=== PATIENT | male | born 1950 | race Caucasian/White ===

== ENCOUNTER 2016-07-31 10:41 | Emergency (ER) | payer OTHER ==
[~2016-07-31] VITALS: Ht 172.7 cm; Wt 81.8 kg
[~2016-07-31 10:41] MED LIST: ACETAMINOPHEN325 M1 PO; ACTOS15 MG PO; ALBUTEROL1.25 MG/3 IH; ALER-CAP25 M2 PO; ALUM-MAG HYDRO360 ML PO; AMLODIPINE BESYL5 MG PO; APRESOLINE10 MG PO; APRESOLINE25 MG PO; APRESOLINE50 MG PO; ASPIRIN EC325 MG PO; ASPIRIN325 MG PO; ATORVASTATIN CA40 MG PO; BENADRYL25 MG PO; BISAC-EVAC10 MG PR; CALMOSEPTINE O120 GM TP; CEFTIN250 MG PO; CENTRUM SILVER1 EAC3 PO; CHOLESTYRAMINE L4 GM PO; CIPROFLOXACIN500 M1 PO; CITRUCEL907 G1 PO; CLONIDINE1 EACH TD; COLACE100 MG PO; COZAAR100 MG PO; COZAAR50 MG PO; CRESTOR40 MG PO; DAILY VALUE1 EACH PO; DAILY VITAMIN1 EAC8 PO; DEPAKENE250 MG PO; DIOVAN160 MG PO; DIPHENHYDRAMINE25 M2 PO; DOCUSATE SODIU100 MG PO; DRISDOL50000 UNIT PO; DULCOLAX10 MG PR; ECOTRIN325 MG PO; ERGOCALCIF50000 UNIT PO; Ecotrin PO; FLEET ENEMA-AD118 ML PR; FLEET MINERAL133 ML PR; FLORANEX CHE1 TABLET PO; GERI-MOX ANTAC355 ML PO; GLIPIZIDE10 MG PO; GLUCAGON1 MG IM; GLUCOPHAGE1000 MG PO; GLUCOSE GEL15 GM PO; HUMALOG100 UNIT/1 SC; HUMALOG100 UNIT/2 SC; JANUMET 50/11 TABLET PO; LANTUS 10100 UNITS/ SC; LANTUS 3 M100 UNITS1 SC; LEVEMIR100 UNIT/2 SC; LIPITOR40 MG PO; LIPITOR80 MG PO; LISINOPRIL40 MG PO; LITHIUM CARBON300 MG PO; LITHIUM CARBON600 MG PO; LOPRESSOR100 M1 PO; LOPRESSOR50 MG PO; LOSARTAN POTASS50 MG PO; Lithium Carbonate PO; MAALOX ADVANCE355 ML PO; METFORMIN HCL1000 MG PO; METFORMIN HCL500 MG PO; METOPROLOL TAR100 MG PO; METOPROLOL TART50 MG PO; MILK OF MAGN PO; NAFCIL 2 G2 GM/100 M IV; NEURONTIN100 MG PO; NEURONTIN300 MG PO; NORVASC5 MG PO; NOVOLOG 10100 UNITS/ SC; NOVOLOG PE100 UNITS/ SC; PLAVIX75 MG PO; POTASSIUM CHLO20 ME1 PO; PRILOSEC OTC20 MG PO; PRILOSEC20 MG PO; PRINIVIL20 MG PO; RISPERDAL1 MG PO; RISPERDAL2 MG PO; RISPERDAL3 MG PO; RISPERIDONE1 MG PO; RISPERIDONE2 MG PO; SENNA8.6 MG PO; SENOKOT,SENN1 TABLET PO; SERTRALINE HCL50 MG PO; TAMSULOSIN HCL0.4 MG PO; TRADJENTA5 MG PO; TRAMADOL HCL50 MG PO; TRAZODONE HCL50 MG PO; TUMS500 MG PO; TYLENOL REGULA325 MG PO; VITAMIN D5000 UNIT; ZESTRIL40 MG PO; ZETIA10 MG PO; ZOCOR40 MG PO; ZOFRAN4 MG PO; ZOLOFT50 MG PO
[2016-07-31 11:39] LABS: CARBON DIOXIDE (BICARBONATE) 25.1 MEQ/L (20-31)
[2016-07-31 11:42] LABS: CHLORIDE 100 mEq/L (99-109); POTASSIUM 4.7 mEq/L (3.7-5.4); SODIUM 133 mEq/L (136-147)
[2016-07-31 11:45] LABS: ANION GAP 11 MEQ/L (2-14); GLUCOSE 698 mg/dL (70-99)
[2016-07-31 11:46] LABS: TOTAL BILIRUBIN 0.2 mg/dL (0.0-1.0)
[2016-07-31 11:48] LABS: ALKALINE PHOSPHATASE 100 IU/L (3-129); GFR ESTIMATE (CALCULATED) 43 mL/min/
[2016-07-31 11:49] LABS: UREA NITROGEN (BUN) 22 mg/dL (9-23)
[2016-07-31 11:55] LABS: ADD MIUA? NO; BILIRUBIN NEGATIVE; BLOOD NEGATIVE; COLOR STRAW ((YELLOW)); GLUCOSE (STRIP) >=500; KETONES 5; LEUKOCYTES NEGATIVE; NITRITE NEGATIVE; PROTEIN (STRIP) NEGATIVE; SPECIFIC GRAVITY 1.015 (1.000-1.030); UCUL ADDED? NO; UROBILINOGEN 0.2 MG/DL (0.2-1.0)
[2016-07-31 11:58] LABS: EOSINOPHIL (%) 1.4 % (0-5); EOSINOPHIL COUNT 0.1 K/uL (0-0.3); HEMATOCRIT 29.8 % (38.0-50.0); LYMPHOCYTE COUNT 0.9 K/uL (1.0-2.8); MCH 31.5 PG (29.0-34.0); MCHC 33.9 G/DL (30.0-36.0); MCV 92.8 FL (86-99); MEAN PLAT.VOLUME 9.3 uM^3 (9.0-12.4); MONOCYTE (%) 5.7 % (3-12); MONOCYTE COUNT 0.4 K/uL (0-0.8); NEUTROPHIL (%) 80.6 % (45-76); NEUTROPHIL COUNT 5.8 K/uL (1.8-6.4); PLATELET COUNT 193 K/uL (156-360); RBC DIS.WIDTH-CV 12.1 % (11.8-14.6); RBC DIS.WIDTH-SD 39.4 % (39-53); RED BLOOD COUNT 3.21 M/uL (4.00-5.50); WHITE BLOOD COUNT 7.2 K/uL (4.1-10.2)
[2016-07-31 14:34] VITALS: BP 158/77
[2016-07-31 14:39] LABS: POINT-OF-CARE METER ID UU14100415
[2016-08-01] MEDS ORDERED: LEVEMIR FL100 UNIT/1 SC ×2 (19:50→19:51)
[2016-08-01] MEDS ORDERED: MIRALAX255 GM PO (19:52)
[2016-08-01] MEDS ORDERED: LEVEMIR100 UNIT/2 SC (19:56)
[2016-08-01] MEDS ORDERED: NOVOLOG 10100 UNITS/ SC (19:57)
[2016-08-03 12:57] LABS: POINT-OF-CARE METER ID UU14100415; POINT-OF-CARE USER ID AHSDISBJH
[2016-08-03 12:57] LABS: POINT-OF-CARE METER ID UU14100415
== END 2016-07-31 15:01 ==
LOC: EME 10:41
PROVIDERS: Physician Assistant
DX: E11.65 Type 2 diabetes mellitus with hyperglycemia (principal); J45.909 Unspecified asthma, uncomplicated; E78.5 Hyperlipidemia, unspecified; I10 Essential (primary) hypertension; K21.9 Gastro-esophageal reflux disease without esophagitis; Z86.73 Personal history of transient ischemic attack (TIA), and cerebral infarction without residual deficits; Z79.4 Long term (current) use of insulin; Z87.891 Personal history of nicotine dependence; Z79.01 Long term (current) use of anticoagulants
CPT/HCPCS: 80053; 81003; 82010; 82803; 82948; 85025; 99281; 99285; J7120

== ENCOUNTER 2016-08-01 15:43 | Inpatient (IN) | payer OTHER ==
[~2016-08-01] VITALS: Ht 172.7 cm; Wt 82.8 kg
[2016-08-01 16:15] LABS: EOSINOPHIL (%) 2.4 % (0-5); EOSINOPHIL COUNT 0.1 K/uL (0-0.3); HEMATOCRIT 30.2 % (38.0-50.0); IMMATURE GRANULOCYTE (%) 0.2 % (0.0-0.7); IMMATURE GRANULOCYTE COUNT 0.1 K/uL; LYMPHOCYTE COUNT 1.3 K/uL (1.0-2.8); MCH 31.8 PG (29.0-34.0); MCHC 35.1 G/DL (30.0-36.0); MCV 90.7 FL (86-99); MEAN PLAT.VOLUME 8.7 uM^3 (9.0-12.4); MONOCYTE (%) 9.6 % (3-12); MONOCYTE COUNT 0.5 K/uL (0-0.8); NEUTROPHIL (%) 62.7 % (45-76); NEUTROPHIL COUNT 3.4 K/uL (1.8-6.4); PLATELET COUNT 181 K/uL (156-360); RBC DIS.WIDTH-CV 11.6 % (11.8-14.6); RBC DIS.WIDTH-SD 37.1 % (39-53); RED BLOOD COUNT 3.33 M/uL (4.00-5.50); WHITE BLOOD COUNT 5.4 K/uL (4.1-10.2)
[2016-08-01 16:27] LABS: CHLORIDE 99 mEq/L (99-109); POTASSIUM 4.4 mEq/L (3.7-5.4); SODIUM 131 mEq/L (136-147)
[2016-08-01 16:31] LABS: ANION GAP 11 MEQ/L (2-14)
[2016-08-01 16:32] LABS: GLUCOSE 596 mg/dL (70-99); TOTAL BILIRUBIN 0.4 mg/dL (0.0-1.0)
[2016-08-01 16:33] LABS: ALKALINE PHOSPHATASE 116 IU/L (3-129); GFR ESTIMATE (CALCULATED) 46 mL/min/
[2016-08-01 16:34] LABS: UREA NITROGEN (BUN) 26 mg/dL (9-23)
[2016-08-01 17:58] LABS: POINT-OF-CARE METER ID UU13113702
[2016-08-01 18:34] LABS: ADD MIUA? NO; BILIRUBIN NEGATIVE; BLOOD NEGATIVE; COLOR COLORLESS ((YELLOW)); GLUCOSE (STRIP) >=500; KETONES 5; LEUKOCYTES NEGATIVE; NITRITE NEGATIVE; PROTEIN (STRIP) NEGATIVE; SPECIFIC GRAVITY 1.007 (1.000-1.030); UROBILINOGEN 0.2 MG/DL (0.2-1.0)
[2016-08-01] MEDS ORDERED: LEVEMIR FL100 UNIT/1 SC ×2 (19:50→19:51)
[2016-08-01] MEDS ORDERED: MIRALAX255 GM PO (19:52)
[2016-08-01] MEDS ORDERED: LEVEMIR100 UNIT/2 SC (19:56)
[2016-08-01] MEDS ORDERED: NOVOLOG 10100 UNITS/ SC (19:57)
[2016-08-01 20:29] LABS: POINT-OF-CARE METER ID UU13113702
[2016-08-01 21:30] VITALS: BP 168/74
[2016-08-01 22:11] LABS: POINT-OF-CARE METER ID UU13113831
[2016-08-02] VITALS: BP 144/65
[2016-08-02 00:25] LABS: CARBON DIOXIDE (BICARBONATE) 22.5 MEQ/L (20-31)
[2016-08-02 00:34] LABS: CHLORIDE 106 mEq/L (99-109); POTASSIUM 4.8 mEq/L (3.7-5.4); SODIUM 137 mEq/L (136-147)
[2016-08-02 00:35] LABS: MAGNESIUM 1.5 mg/dL (1.3-2.7)
[2016-08-02 00:38] LABS: ANION GAP 11 MEQ/L (2-14)
[2016-08-02 00:39] LABS: TOTAL BILIRUBIN 0.4 mg/dL (0.0-1.0)
[2016-08-02 00:40] LABS: ALKALINE PHOSPHATASE 100 IU/L (3-129)
[2016-08-02 00:41] LABS: GFR ESTIMATE (CALCULATED) > 59 mL/min/
[2016-08-02 00:42] LABS: UREA NITROGEN (BUN) 19 mg/dL (9-23)
[2016-08-02 00:48] LABS: GLUCOSE 435 mg/dL (70-99)
[2016-08-02 04:00] VITALS: BP 138/68
[2016-08-02 04:04] LABS: METH RESISTANT S AUREUS PCR POSITIVE (NEGATIVE)
[2016-08-02 04:05] LABS: PROBE CHECK PASS
[2016-08-02 06:03] LABS: CARBON DIOXIDE (BICARBONATE) 21.5 MEQ/L (20-31)
[2016-08-02 06:45] LABS: ALKALINE PHOSPHATASE 88 IU/L (3-129); ANION GAP 11 MEQ/L (2-14); CHLORIDE 107 MEQ/L (99-109); GFR ESTIMATE (CALCULATED) > 59 mL/min/; MAGNESIUM 1.7 mg/dl (1.3-2.7); POTASSIUM 4.7 MEQ/L (3.7-5.4); SAMPLE HEMOLYSIS CHECK 0; SAMPLE ICTERIC CHECK 0; SAMPLE LIPEMIA CHECK 0; SODIUM 137 MEQ/L (136-147); TOTAL BILIRUBIN 0.4 MG/DL (0.0-1.0); UREA NITROGEN (BUN) 21 mg/dL (9-23)
[2016-08-02 06:50] LABS: GLUCOSE 482 mg/dL (70-99)
[2016-08-02 07:36] VITALS: BP 104/49
[2016-08-02 11:11] LABS: Estimated Average Glucose 240 mg/dL (70-123)
[2016-08-02 12:23] LABS: BASE EXCESS -7.7 mEq/L (-3 to +3); BICARBONATE 18.3 mEq/L (22-26); CARBOXY HGB 1.6 % (0-5); METHEMOGLOBIN 1.7 % (0-1.5); PCO2 38 mm Hg (35-45); PO2 82 mm Hg (80-100)
[2016-08-02 12:25] LABS: COMMENTS - BLOOD GASES A+C+; MODE RA; SITE LR
[2016-08-02 12:26] LABS: TOTAL RESP RATE 16 resp/min; pH 7.29 (7.35-7.45)
[2016-08-02 14:06] LABS: ANION GAP 8 MEQ/L (2-14); CHLORIDE 106 MEQ/L (99-109); GFR ESTIMATE (CALCULATED) 54 mL/min/; GLUCOSE 363 mg/dL (70-99); POTASSIUM 4.5 MEQ/L (3.7-5.4); SAMPLE HEMOLYSIS CHECK 0; SAMPLE ICTERIC CHECK 0; SAMPLE LIPEMIA CHECK 0; SODIUM 136 MEQ/L (136-147); UREA NITROGEN (BUN) 24 mg/dL (9-23)
[2016-08-02 16:00] VITALS: BP 130/61
[2016-08-02 17:33] VITALS: BP 130/66
[2016-08-02 17:55] LABS: POINT-OF-CARE METER ID UU13113725
[2016-08-02 22:57] VITALS: BP 141/66
[2016-08-03 04:47] LABS: POINT-OF-CARE METER ID UU13113725
[2016-08-03 06:00] LABS: HEMATOCRIT 28.3 % (38.0-50.0); MCH 32.2 PG (29.0-34.0); MCHC 34.3 G/DL (30.0-36.0); MEAN PLAT.VOLUME 9.6 uM^3 (9.0-12.4); PLATELET COUNT 168 K/uL (156-360); RBC DIS.WIDTH-CV 12.6 % (11.8-14.6); RBC DIS.WIDTH-SD 43.2 % (39-53); RED BLOOD COUNT 3.01 M/uL (4.00-5.50); WHITE BLOOD COUNT 4.5 K/uL (4.1-10.2)
[2016-08-03 06:27] LABS: ANION GAP 7 MEQ/L (2-14); CHLORIDE 111 MEQ/L (99-109); GFR ESTIMATE (CALCULATED) > 59 mL/min/; SAMPLE HEMOLYSIS CHECK 0; SAMPLE ICTERIC CHECK 0; SAMPLE LIPEMIA CHECK 0; SODIUM 142 MEQ/L (136-147); UREA NITROGEN (BUN) 16 mg/dL (9-23)
[2016-08-03 06:28] LABS: POINT-OF-CARE METER ID UU13113725
[2016-08-03 06:31] LABS: GLUCOSE 169 mg/dL (70-99)
[2016-08-03 07:27] VITALS: BP 143/66
[2016-08-03 11:28] LABS: POINT-OF-CARE METER ID UU13113725
[2016-08-03 12:15] LABS: POINT-OF-CARE METER ID UU13113725
[2016-08-03 12:16] LABS: POINT-OF-CARE METER ID UU13113725
[2016-08-03 12:29] LABS: POINT-OF-CARE METER ID UU13113831
[2016-08-03 12:31] LABS: POINT-OF-CARE METER ID UU13113702
[2016-08-03 16:46] VITALS: BP 144/67
[2016-08-03 23:15] VITALS: BP 136/63
[2016-08-04 05:56] LABS: POINT-OF-CARE METER ID UU13113725
[2016-08-04 07:55] VITALS: BP 177/79
[2016-08-04 17:01] VITALS: BP 171/78
[2016-08-04 20:53] LABS: POINT-OF-CARE METER ID UU13113725
[2016-08-04 23:44] VITALS: BP 130/69
[2016-08-05 07:32] VITALS: BP 157/75
[2016-08-05] MEDS ORDERED: NOVOLOG PE100 UNITS/ SC (09:09)
[2016-08-05] MEDS ORDERED: LEVEMIR100 UNIT/2 SC (09:11)
[2016-08-05 11:27] LABS: POINT-OF-CARE METER ID UU13113725
== END 2016-08-05 13:16 | DRG 684 ==
LOC: EME 15:43 → 5WEST 20:20 → EDOF 20:20 → 5WEST 21:04 → 5EAST 08-02 09:18 → 5WEST 08-02 09:18 → 5EAST 08-02 17:24
PROVIDERS: Emergency Medicine; Family Medicine; Hospitalist; Internal Medicine; Physician Assistant Medical
DX: N17.9 Acute kidney failure, unspecified (principal); E11.65 Type 2 diabetes mellitus with hyperglycemia; E11.69 Type 2 diabetes mellitus with other specified complication; D63.8 Anemia in other chronic diseases classified elsewhere; F20.9 Schizophrenia, unspecified; F70 Mild intellectual disabilities; E78.5 Hyperlipidemia, unspecified; I25.10 Atherosclerotic heart disease of native coronary artery without angina pectoris; I10 Essential (primary) hypertension; E86.0 Dehydration; F31.9 Bipolar disorder, unspecified; K02.9 Dental caries, unspecified; Z86.73 Personal history of transient ischemic attack (TIA), and cerebral infarction without residual deficits; Z95.5 Presence of coronary angioplasty implant and graft; Z87.891 Personal history of nicotine dependence
CPT/HCPCS: 36600; 80048; 80048 91; 80053; 81003; 82010; 82803; 82948; 83036; 83605; 83735; 85025; 85027; 87641; 99281; 99285; G0378; J1650; J1815; J3480; J7030; J7120

== ENCOUNTER 2016-08-15 14:50 | Emergency (ER) | payer OTHER ==
[~2016-08-15] VITALS: Ht 172.7 cm; Wt 83.3 kg
[~2016-08-15 14:50] MED LIST changes: +LEVEMIR FL100 UNIT/1 SC; +MIRALAX255 GM PO
[2016-08-15 15:20] LABS: EOSINOPHIL (%) 1.6 % (0-5); EOSINOPHIL COUNT 0.1 K/uL (0-0.3); HEMATOCRIT 30.4 % (38.0-50.0); IMMATURE GRANULOCYTE (%) 0.5 % (0.0-0.7); INSTRUMENT ABS NEUTROPHIL CT 6.6 K/uL; LYMPHOCYTE COUNT 1.2 K/uL (1.0-2.8); MCH 31.8 PG (29.0-34.0); MCHC 34.2 G/DL (30.0-36.0); MEAN PLAT.VOLUME 8.8 uM^3 (9.0-12.4); MONOCYTE (%) 7.1 % (3-12); MONOCYTE COUNT 0.6 K/uL (0-0.8); NEUTROPHIL (%) 77.1 % (45-76); NEUTROPHIL COUNT 6.6 K/uL (1.8-6.4); PLATELET COUNT 218 K/uL (156-360); RBC DIS.WIDTH-CV 11.9 % (11.8-14.6); RBC DIS.WIDTH-SD 40.7 % (39-53); RED BLOOD COUNT 3.27 M/uL (4.00-5.50)
[2016-08-15 15:25] LABS: WHITE BLOOD COUNT 8.6 K/uL (4.1-10.2)
[2016-08-15 15:26] LABS: CARBON DIOXIDE (BICARBONATE) 22.7 MEQ/L (20-31)
[2016-08-15 15:29] LABS: CHLORIDE 99 mEq/L (99-109); POTASSIUM 4.6 mEq/L (3.7-5.4); SODIUM 130 mEq/L (136-147)
[2016-08-15 15:32] LABS: ANION GAP 11 MEQ/L (2-14)
[2016-08-15 15:33] LABS: ADD MIUA? NO; BILIRUBIN NEGATIVE; BLOOD NEGATIVE; COLOR COLORLESS ((YELLOW)); GLUCOSE (STRIP) >=500; KETONES 5; LEUKOCYTES NEGATIVE; NITRITE NEGATIVE; PROTEIN (STRIP) NEGATIVE; SPECIFIC GRAVITY 1.009 (1.000-1.030); UROBILINOGEN 0.2 MG/DL (0.2-1.0)
[2016-08-15 15:34] LABS: GFR ESTIMATE (CALCULATED) 46 mL/min/
[2016-08-15 15:35] LABS: UREA NITROGEN (BUN) 24 mg/dL (9-23)
[2016-08-15 15:56] LABS: GLUCOSE 551 mg/dL (70-99)
[2016-08-15 16:37] LABS: POINT-OF-CARE METER ID UU14100415
[2016-08-15 17:23] LABS: POINT-OF-CARE METER ID UU14100415
[2016-08-15 17:41] VITALS: BP 153/66
[2016-08-16 20:18] LABS: POINT-OF-CARE METER ID UU14100415
== END 2016-08-15 18:21 ==
LOC: EME 14:50
PROVIDERS: Emergency Medicine
DX: E11.65 Type 2 diabetes mellitus with hyperglycemia (principal); Z79.4 Long term (current) use of insulin; J45.909 Unspecified asthma, uncomplicated; E78.5 Hyperlipidemia, unspecified; I10 Essential (primary) hypertension; K21.9 Gastro-esophageal reflux disease without esophagitis; Z86.73 Personal history of transient ischemic attack (TIA), and cerebral infarction without residual deficits; Z87.891 Personal history of nicotine dependence
CPT/HCPCS: 80048; 81003; 82803; 82948; 85025; 99281; 99284; J7030

== ENCOUNTER 2016-09-17 12:21 | Inpatient (IN) | payer OTHER ==
[~2016-09-17] VITALS: Ht 172.7 cm; Wt 76.1 kg
[2016-09-17 13:33] LABS: CARBON DIOXIDE (BICARBONATE) 12.8 MEQ/L (20-31)
[2016-09-17 13:41] LABS: HEMATOCRIT 34.3 % (38.0-50.0); MCH 31.9 PG (29.0-34.0); MCHC 32.4 G/DL (30.0-36.0); MEAN PLAT.VOLUME 9.6 uM^3 (9.0-12.4); PLATELET COUNT 213 K/uL (156-360); RBC DIS.WIDTH-CV 12.1 % (11.8-14.6); RBC DIS.WIDTH-SD 44.2 % (39-53); RED BLOOD COUNT 3.48 M/uL (4.00-5.50)
[2016-09-17 13:42] LABS: MCV 98.6 FL (86-99); WHITE BLOOD COUNT 10.8 K/uL (4.1-10.2)
[2016-09-17 13:43] LABS: CHLORIDE 92 mEq/L (99-109)
[2016-09-17 13:46] LABS: ANION GAP 27 MEQ/L (2-14)
[2016-09-17 13:50] LABS: GLUCOSE 782 mg/dL (70-99)
[2016-09-17 13:51] LABS: GFR ESTIMATE (CALCULATED) 32 mL/min/; POTASSIUM 5.5 mEq/L (3.7-5.4); SODIUM 129 mEq/L (136-147); UREA NITROGEN (BUN) 40 mg/dL (9-23)
[2016-09-17] MEDS ORDERED: CRESTOR20 MG PO (15:25)
[2016-09-17 15:26] LABS: Estimated Average Glucose 246 mg/dL (70-123); HEMOGLOBIN A1c (GLYCOHEMOGLOB) 10.2 % HGB (Below 5.7)
[2016-09-17] MEDS ORDERED: LEVEMIR FL100 UNIT/1 SC ×2 (15:28)
[2016-09-17] MEDS ORDERED: NOVOLOG PE100 UNITS/ SC (15:30)
[2016-09-17] MEDS ORDERED: ACETAMINOPHEN325 M1 PO (15:36)
[2016-09-17] MEDS ORDERED: TYLENOL REGULA325 MG PO (15:39)
[2016-09-17] MEDS ORDERED: DULCOLAX10 MG PR (15:44)
[2016-09-17 16:13] LABS: ADD MIUA? NO; BILIRUBIN NEGATIVE; BLOOD NEGATIVE; COLOR STRAW ((YELLOW)); GLUCOSE (STRIP) >=500; KETONES 80; LEUKOCYTES NEGATIVE; NITRITE NEGATIVE; PROTEIN (STRIP) NEGATIVE; SPECIFIC GRAVITY 1.015 (1.000-1.030); UROBILINOGEN 0.2 MG/DL (0.2-1.0)
[2016-09-17 16:32] LABS: SODIUM 135 mEq/L (136-147)
[2016-09-17 16:35] LABS: ANION GAP 22 MEQ/L (2-14)
[2016-09-17 16:37] LABS: GFR ESTIMATE (CALCULATED) 34 mL/min/
[2016-09-17 16:38] LABS: UREA NITROGEN (BUN) 38 mg/dL (9-23)
[2016-09-17 16:39] LABS: CHLORIDE 102 mEq/L (99-109); GLUCOSE 699 mg/dL (70-99); POTASSIUM 4.2 mEq/L (3.7-5.4)
[2016-09-17 19:41] VITALS: BP 117/54
[2016-09-17 20:00] VITALS: BP 114/47
[2016-09-17 20:18] LABS: ANION GAP 13 MEQ/L (2-14); CHLORIDE 104 MEQ/L (99-109); GLUCOSE 388 mg/dL (70-99); POTASSIUM 4.1 MEQ/L (3.7-5.4); SAMPLE HEMOLYSIS CHECK 0; SAMPLE ICTERIC CHECK 0; SAMPLE LIPEMIA CHECK 0; SODIUM 138 MEQ/L (136-147); UREA NITROGEN (BUN) 35 mg/dL (9-23)
[2016-09-17 20:28] LABS: GFR ESTIMATE (CALCULATED) 46 mL/min/
[2016-09-17 21:00] VITALS: BP 118/47
[2016-09-17 21:54] LABS: METH RESISTANT S AUREUS PCR POSITIVE (NEGATIVE)
[2016-09-17 21:59] LABS: PROBE CHECK PASS
[2016-09-17 22:00] VITALS: BP 120/50
[2016-09-17 23:00] VITALS: BP 89/34
[2016-09-18] VITALS (14 sets, daily range): BP systolic 95–184; BP diastolic 37–78
[2016-09-18 00:48] LABS: CHLORIDE 110 mEq/L (99-109); POTASSIUM 3.8 mEq/L (3.7-5.4); SODIUM 141 mEq/L (136-147)
[2016-09-18 00:51] LABS: ANION GAP 8 MEQ/L (2-14)
[2016-09-18 00:52] LABS: GLUCOSE 161 mg/dL (70-99)
[2016-09-18 00:54] LABS: GFR ESTIMATE (CALCULATED) 50 mL/min/
[2016-09-18 00:55] LABS: UREA NITROGEN (BUN) 30 mg/dL (9-23)
[2016-09-18 04:38] LABS: CHLORIDE 110 mEq/L (99-109); SODIUM 140 mEq/L (136-147)
[2016-09-18 04:40] LABS: GLUCOSE 138 mg/dL (70-99)
[2016-09-18 04:41] LABS: ANION GAP 10 MEQ/L (2-14); POTASSIUM 4.6 mEq/L (3.7-5.4)
[2016-09-18 04:44] LABS: GFR ESTIMATE (CALCULATED) 54 mL/min/; UREA NITROGEN (BUN) 28 mg/dL (9-23)
[2016-09-18 08:16] LABS: CHLORIDE 112 mEq/L (99-109); POTASSIUM 3.9 mEq/L (3.7-5.4); SODIUM 142 mEq/L (136-147)
[2016-09-18 08:18] LABS: GLUCOSE 164 mg/dL (70-99)
[2016-09-18 08:19] LABS: ANION GAP 11 MEQ/L (2-14)
[2016-09-18 08:22] LABS: GFR ESTIMATE (CALCULATED) 54 mL/min/
[2016-09-18 08:23] LABS: UREA NITROGEN (BUN) 24 mg/dL (9-23)
[2016-09-18 09:26] LABS: POINT-OF-CARE METER ID UU13113702
[2016-09-18 09:26] LABS: POINT-OF-CARE METER ID UU13113702
[2016-09-18 09:26] LABS: POINT-OF-CARE METER ID UU13113702
[2016-09-18 11:51] LABS: POINT-OF-CARE USER ID 606021424
[2016-09-19 00:38] VITALS: BP 162/71
[2016-09-19 04:11] VITALS: BP 146/65
[2016-09-19 06:00] LABS: ANION GAP 6 MEQ/L (2-14); CHLORIDE 108 MEQ/L (99-109); GFR ESTIMATE (CALCULATED) > 59 mL/min/; GLUCOSE 118 mg/dL (70-99); POTASSIUM 4.1 MEQ/L (3.7-5.4); SAMPLE HEMOLYSIS CHECK 0; SAMPLE ICTERIC CHECK 0; SAMPLE LIPEMIA CHECK 0; SODIUM 140 MEQ/L (136-147); UREA NITROGEN (BUN) 20 mg/dL (9-23)
[2016-09-19 06:14] LABS: HEMATOCRIT 30.8 % (38.0-50.0); MCH 31.6 PG (29.0-34.0); MCHC 33.4 G/DL (30.0-36.0); MEAN PLAT.VOLUME 8.9 uM^3 (9.0-12.4); PLATELET COUNT 190 K/uL (156-360); RBC DIS.WIDTH-CV 12.1 % (11.8-14.6); RBC DIS.WIDTH-SD 41.8 % (39-53); RED BLOOD COUNT 3.26 M/uL (4.00-5.50)
[2016-09-19 06:20] LABS: MCV 94.5 FL (86-99); WHITE BLOOD COUNT 6.9 K/uL (4.1-10.2)
[2016-09-19 08:22] VITALS: BP 138/92
[2016-09-19] MEDS ORDERED: LEVEMIR100 UNIT/2 SC (11:58)
[2016-09-19 12:41] LABS: POINT-OF-CARE METER ID UU14149397
[2016-09-19 15:57] VITALS: BP 172/80
== END 2016-09-19 16:02 | DRG 638 ==
LOC: EME 12:21 → EDOF 17:10 → 3EAST 17:10 → 4WEST 17:10 → 3EAST 09-18 12:55
PROVIDERS: Anesthesiology; Emergency Medicine; Internal Medicine; Internal Medicine Pulmonary Disease
DX: E13.10 Other specified diabetes mellitus with ketoacidosis without coma (principal); N17.9 Acute kidney failure, unspecified; Z79.4 Long term (current) use of insulin; I95.9 Hypotension, unspecified; I25.10 Atherosclerotic heart disease of native coronary artery without angina pectoris; I10 Essential (primary) hypertension; E78.5 Hyperlipidemia, unspecified; Z86.73 Personal history of transient ischemic attack (TIA), and cerebral infarction without residual deficits; N40.0 Benign prostatic hyperplasia without lower urinary tract symptoms; F31.9 Bipolar disorder, unspecified; Z87.891 Personal history of nicotine dependence; J45.909 Unspecified asthma, uncomplicated; F20.9 Schizophrenia, unspecified
CPT/HCPCS: 80048; 80048 91; 81003; 82010; 82803; 82948; 83036; 84100; 85027; 87641; 93005; 99281; 99285; J1815; J7030; J7050

== ENCOUNTER 2016-10-09 15:30 | Inpatient (IN) | payer OTHER ==
[~2016-10-09] VITALS: Ht 172.7 cm; Wt 76.5 kg
[~2016-10-09 15:30] MED LIST changes: +CRESTOR20 MG PO
[2016-10-09 16:56] LABS: ADD MIUA? NO; BILIRUBIN NEGATIVE; BLOOD NEGATIVE; COLOR STRAW ((YELLOW)); GLUCOSE (STRIP) >=500; KETONES 80; LEUKOCYTES NEGATIVE; NITRITE NEGATIVE; PROTEIN (STRIP) NEGATIVE; SPECIFIC GRAVITY 1.012 (1.000-1.030); UCUL ADDED? NO; UROBILINOGEN 0.2 MG/DL (0.2-1.0)
[2016-10-09 17:04] LABS: EOSINOPHIL (%) 0 % (0-5); HEMATOCRIT 32.3 % (38.0-50.0); IMMATURE GRANULOCYTE (%) 0.5 % (0.0-0.7); IMMATURE GRANULOCYTE COUNT 0.1 K/uL; INSTRUMENT ABS NEUTROPHIL CT 8.6 K/uL; LYMPHOCYTE COUNT 0.8 K/uL (1.0-2.8); MCH 30.9 PG (29.0-34.0); MCHC 32.8 G/DL (30.0-36.0); MCV 94.2 FL (86-99); MEAN PLAT.VOLUME 9.2 uM^3 (9.0-12.4); MONOCYTE (%) 6.7 % (3-12); MONOCYTE COUNT 0.7 K/uL (0-0.8); NEUTROPHIL (%) 84.6 % (45-76); NEUTROPHIL COUNT 8.6 K/uL (1.8-6.4); PLATELET COUNT 245 K/uL (156-360); RBC DIS.WIDTH-CV 11.9 % (11.8-14.6); RBC DIS.WIDTH-SD 41.2 % (39-53); RED BLOOD COUNT 3.43 M/uL (4.00-5.50); WHITE BLOOD COUNT 10.2 K/uL (4.1-10.2)
[2016-10-09 17:11] LABS: CHLORIDE 98 mEq/L (99-109); POTASSIUM 4.9 mEq/L (3.7-5.4)
[2016-10-09 17:12] LABS: SODIUM 128 mEq/L (136-147)
[2016-10-09 17:15] LABS: ANION GAP 14 MEQ/L (2-14)
[2016-10-09 17:16] LABS: TOTAL BILIRUBIN 0.3 mg/dL (0.0-1.0)
[2016-10-09 17:17] LABS: ALKALINE PHOSPHATASE 113 IU/L (3-129); GFR ESTIMATE (CALCULATED) 32 mL/min/
[2016-10-09 17:20] LABS: UREA NITROGEN (BUN) 36 mg/dL (9-23)
[2016-10-09 17:21] LABS: GLUCOSE 566 mg/dL (70-99)
[2016-10-09 17:56] LABS: BASE EXCESS -9.9 mEq/L (-3 to +3); BICARBONATE 16.1 mEq/L (22-26); CARBOXY HGB 2.9 % (0-5); COMMENTS - BLOOD GASES A+C+; METHEMOGLOBIN 2.5 % (0-1.5); PCO2 35 mm Hg (35-45); PO2 79 mm Hg (80-100); SITE LR; pH 7.27 (7.35-7.45)
[2016-10-09] MEDS ORDERED: LEVEMIR FL100 UNIT/1 SC ×2 (18:03→18:11)
[2016-10-09] MEDS ORDERED: DOCUSATE SODIU100 MG PO (18:08)
[2016-10-09] MEDS ORDERED: TYLENOL REGULA325 MG PO (18:12)
[2016-10-09] MEDS ORDERED: NOVOLOG PE100 UNITS/ SC (18:12)
[2016-10-09 20:09] LABS: Estimated Average Glucose 249 mg/dL (70-123); HEMOGLOBIN A1c (GLYCOHEMOGLOB) 10.3 % HGB (Below 5.7)
[2016-10-09 20:10] LABS: CHLORIDE 102 mEq/L (99-109); POTASSIUM 5.2 mEq/L (3.7-5.4); SODIUM 132 mEq/L (136-147)
[2016-10-09 20:13] LABS: ANION GAP 17 MEQ/L (2-14)
[2016-10-09 20:15] LABS: GFR ESTIMATE (CALCULATED) 36 mL/min/
[2016-10-09 20:16] LABS: UREA NITROGEN (BUN) 33 mg/dL (9-23)
[2016-10-09 20:18] LABS: GLUCOSE 547 mg/dL (70-99)
[2016-10-09 22:00] LABS: POINT-OF-CARE METER ID UU13113702; POINT-OF-CARE USER ID PUTMLD10
[2016-10-09 22:15] VITALS: BP 119/57
[2016-10-09 22:16] VITALS: BP 115/52
[2016-10-09 22:58] LABS: POINT-OF-CARE METER ID UU14174217
[2016-10-09 23:00] VITALS: BP 116/50
[2016-10-09 23:33] LABS: METH RESISTANT S AUREUS PCR NEGATIVE (NEGATIVE)
[2016-10-09 23:41] LABS: PROBE CHECK PASS; SPECIMEN PROCESSING CONTROL PASS
[2016-10-09 23:48] LABS: POINT-OF-CARE METER ID UU14174217
[2016-10-10] VITALS (18 sets, daily range): BP systolic 97–164; BP diastolic 41–80
[2016-10-10 01:00] LABS: CHLORIDE 110 mEq/L (99-109); POTASSIUM 4.3 mEq/L (3.7-5.4); SODIUM 136 mEq/L (136-147)
[2016-10-10 01:02] LABS: GLUCOSE 365 mg/dL (70-99)
[2016-10-10 01:03] LABS: ANION GAP 7 MEQ/L (2-14)
[2016-10-10 01:05] LABS: POINT-OF-CARE METER ID UU14174217
[2016-10-10 01:06] LABS: GFR ESTIMATE (CALCULATED) 41 mL/min/
[2016-10-10 01:07] LABS: UREA NITROGEN (BUN) 27 mg/dL (9-23)
[2016-10-10 01:53] LABS: POINT-OF-CARE METER ID UU14174217
[2016-10-10 02:57] LABS: POINT-OF-CARE METER ID UU14174217
[2016-10-10 03:55] LABS: POINT-OF-CARE METER ID UU14174217
[2016-10-10 04:06] LABS: CHLORIDE 112 mEq/L (99-109); POTASSIUM 4.3 mEq/L (3.7-5.4); SODIUM 139 mEq/L (136-147)
[2016-10-10 04:09] LABS: ANION GAP 7 MEQ/L (2-14)
[2016-10-10 04:11] LABS: GLUCOSE 156 mg/dL (70-99)
[2016-10-10 04:12] LABS: GFR ESTIMATE (CALCULATED) 46 mL/min/; UREA NITROGEN (BUN) 24 mg/dL (9-23)
[2016-10-10 04:46] LABS: HDL CHOLESTEROL 39 MG/DL (Desirable>=40); LDL CHOLESTEROL 104 mg/dL (Desirable<100); NON-HDL CHOLESTEROL 116 mg/dL (Desirable<160); TOTAL CHOLESTEROL 155 mg/dL (Desirable<200); TRIGLYCERIDES 61 MG/DL (Normal: <150)
[2016-10-10 04:57] LABS: POINT-OF-CARE METER ID UU14174217
[2016-10-10 05:20] LABS: POINT-OF-CARE METER ID UU14174217
[2016-10-10 06:27] LABS: POINT-OF-CARE METER ID UU14174217
[2016-10-10 07:28] LABS: POINT-OF-CARE METER ID UU14174217
[2016-10-10 12:12] LABS: POINT-OF-CARE METER ID UU14174217
[2016-10-10 16:57] LABS: POINT-OF-CARE METER ID UU13113725
[2016-10-10 19:29] LABS: CHLORIDE 110 mEq/L (99-109); SODIUM 138 mEq/L (136-147)
[2016-10-10 19:32] LABS: ANION GAP 8 MEQ/L (2-14)
[2016-10-10 19:35] LABS: GFR ESTIMATE (CALCULATED) 50 mL/min/
[2016-10-10 20:14] LABS: GLUCOSE 292 mg/dL (70-99); UREA NITROGEN (BUN) 18 mg/dL (9-23)
[2016-10-10 21:06] LABS: POINT-OF-CARE METER ID UU13113725
[2016-10-11 06:01] LABS: POINT-OF-CARE METER ID UU13113725
[2016-10-11 07:34] LABS: ANION GAP 6 MEQ/L (2-14); CHLORIDE 113 MEQ/L (99-109); GFR ESTIMATE (CALCULATED) > 59 mL/min/; MAGNESIUM 1.7 mg/dl (1.3-2.7); POTASSIUM 4.7 MEQ/L (3.7-5.4); SAMPLE HEMOLYSIS CHECK 0; SAMPLE ICTERIC CHECK 0; SAMPLE LIPEMIA CHECK 0; UREA NITROGEN (BUN) 17 mg/dL (9-23)
[2016-10-11 07:35] LABS: GLUCOSE 53 mg/dL (70-99); SODIUM 145 MEQ/L (136-147)
[2016-10-11 07:43] VITALS: BP 157/71
[2016-10-11 15:59] VITALS: BP 177/71
[2016-10-11 19:36] LABS: CHLORIDE 106 mEq/L (99-109); POTASSIUM 4.5 mEq/L (3.7-5.4)
[2016-10-11 19:37] LABS: SODIUM 134 mEq/L (136-147)
[2016-10-11 19:39] LABS: ANION GAP 6 MEQ/L (2-14); GLUCOSE 173 mg/dL (70-99)
[2016-10-11 19:42] LABS: GFR ESTIMATE (CALCULATED) > 59 mL/min/
[2016-10-11 19:43] LABS: UREA NITROGEN (BUN) 14 mg/dL (9-23)
[2016-10-11 20:44] LABS: POINT-OF-CARE METER ID UU13113725
[2016-10-11 22:44] VITALS: BP 150/70
[2016-10-12 03:21] LABS: POINT-OF-CARE METER ID UU13113725
[2016-10-12 06:02] LABS: POINT-OF-CARE METER ID UU13113725
[2016-10-12 07:15] VITALS: BP 138/86
[2016-10-12 07:37] LABS: ANION GAP 6 MEQ/L (2-14); CHLORIDE 109 MEQ/L (99-109); GFR ESTIMATE (CALCULATED) > 59 mL/min/; MAGNESIUM 1.6 mg/dl (1.3-2.7); POTASSIUM 4.5 MEQ/L (3.7-5.4); SAMPLE HEMOLYSIS CHECK 0; SAMPLE ICTERIC CHECK 0; SAMPLE LIPEMIA CHECK 0; UREA NITROGEN (BUN) 13 mg/dL (9-23)
[2016-10-12 07:39] LABS: GLUCOSE 107 mg/dL (70-99); SODIUM 142 MEQ/L (136-147)
[2016-10-12 08:51] LABS: ALKALINE PHOSPHATASE 132 IU/L (3-129); TOTAL BILIRUBIN 0.5 MG/DL (0.0-1.0)
[2016-10-12 10:33] LABS: ANION GAP 5 MEQ/L (2-14); CHLORIDE 105 MEQ/L (99-109); GFR ESTIMATE (CALCULATED) > 59 mL/min/; GLUCOSE 323 mg/dL (70-99); POTASSIUM 5.1 MEQ/L (3.7-5.4); SAMPLE HEMOLYSIS CHECK 0; SAMPLE ICTERIC CHECK 0; SAMPLE LIPEMIA CHECK 0; SODIUM 137 MEQ/L (136-147); UREA NITROGEN (BUN) 14 mg/dL (9-23)
[2016-10-12 10:47] LABS: POINT-OF-CARE METER ID UU13113725
[2016-10-12 14:53] LABS: POINT-OF-CARE METER ID UU13113725
[2016-10-12 14:59] LABS: POINT-OF-CARE METER ID UU13113702
[2016-10-12 14:59] LABS: POINT-OF-CARE METER ID UU13113702
[2016-10-12 15:46] VITALS: BP 179/80
[2016-10-12 15:55] LABS: POINT-OF-CARE METER ID UU13113725
[2016-10-12 19:35] LABS: CHLORIDE 108 mEq/L (99-109); POTASSIUM 4.7 mEq/L (3.7-5.4); SODIUM 139 mEq/L (136-147)
[2016-10-12 19:38] LABS: ANION GAP 7 MEQ/L (2-14); GLUCOSE 129 mg/dL (70-99)
[2016-10-12 19:41] LABS: GFR ESTIMATE (CALCULATED) > 59 mL/min/
[2016-10-12 19:42] LABS: UREA NITROGEN (BUN) 14 mg/dL (9-23)
[2016-10-12 21:20] VITALS: BP 159/75
[2016-10-12 23:12] VITALS: BP 163/76
[2016-10-13 03:13] LABS: GLUCOSE 171 mg/dL (70-99)
[2016-10-13 06:10] LABS: POINT-OF-CARE METER ID UU13113725
[2016-10-13 07:43] VITALS: BP 158/76
[2016-10-13 10:06] LABS: ANION GAP 6 MEQ/L (2-14); CHLORIDE 103 MEQ/L (99-109); GFR ESTIMATE (CALCULATED) > 59 mL/min/; MAGNESIUM 1.7 mg/dl (1.3-2.7); POTASSIUM 4.7 MEQ/L (3.7-5.4); SAMPLE HEMOLYSIS CHECK 0; SAMPLE ICTERIC CHECK 0; SAMPLE LIPEMIA CHECK 0; SODIUM 137 MEQ/L (136-147); UREA NITROGEN (BUN) 10 mg/dL (9-23)
[2016-10-13 10:09] LABS: GLUCOSE 355 mg/dL (70-99)
[2016-10-13 10:25] LABS: HBSG INDEX 0.22; HPCA INDEX 0.13
[2016-10-13 10:26] LABS: ALKALINE PHOSPHATASE 181 IU/L (3-129); ANION GAP 6 MEQ/L (2-14); CHLORIDE 103 MEQ/L (99-109); GFR ESTIMATE (CALCULATED) > 59 mL/min/; GLUCOSE 360 mg/dL (70-99); POTASSIUM 4.7 MEQ/L (3.7-5.4); SAMPLE HEMOLYSIS CHECK 0; SAMPLE ICTERIC CHECK 0; SAMPLE LIPEMIA CHECK 0; SODIUM 137 MEQ/L (136-147); TOTAL BILIRUBIN 0.5 MG/DL (0.0-1.0); UREA NITROGEN (BUN) 10 mg/dL (9-23)
[2016-10-13 10:27] LABS: ANTI-HEPATITIS A VIRUS (IGM) Nonreactive; ANTI-HEPATITIS B CORE (IGM) Nonreactive; HAV INDEX 0.17; HBC IgM INDEX 0.08
[2016-10-13 11:49] LABS: POINT-OF-CARE METER ID UU13113725
[2016-10-13 15:00] VITALS: BP 142/62
[2016-10-13 19:05] LABS: CHLORIDE 103 mEq/L (99-109); POTASSIUM 4.6 mEq/L (3.7-5.4); SODIUM 136 mEq/L (136-147)
[2016-10-13 19:08] LABS: ANION GAP 8 MEQ/L (2-14); GLUCOSE 178 mg/dL (70-99)
[2016-10-13 19:11] LABS: GFR ESTIMATE (CALCULATED) > 59 mL/min/; UREA NITROGEN (BUN) 15 mg/dL (9-23)
[2016-10-13 21:17] LABS: POINT-OF-CARE METER ID UU13113725
[2016-10-13 23:58] VITALS: BP 163/80
[2016-10-14 05:55] LABS: POINT-OF-CARE METER ID UU13113725
[2016-10-14 07:40] LABS: ANION GAP 8 MEQ/L (2-14); CHLORIDE 106 MEQ/L (99-109); GFR ESTIMATE (CALCULATED) > 59 mL/min/; GLUCOSE 119 mg/dL (70-99); MAGNESIUM 1.8 mg/dl (1.3-2.7); POTASSIUM 4.3 MEQ/L (3.7-5.4); SAMPLE HEMOLYSIS CHECK 0; SAMPLE ICTERIC CHECK 0; SAMPLE LIPEMIA CHECK 0; SODIUM 141 MEQ/L (136-147); UREA NITROGEN (BUN) 13 mg/dL (9-23)
[2016-10-14 07:56] LABS: ALKALINE PHOSPHATASE 166 IU/L (3-129); ANION GAP 8 MEQ/L (2-14); CHLORIDE 105 MEQ/L (99-109); GFR ESTIMATE (CALCULATED) > 59 mL/min/; GLUCOSE 118 mg/dL (70-99); POTASSIUM 4.3 MEQ/L (3.7-5.4); SAMPLE HEMOLYSIS CHECK 0; SAMPLE ICTERIC CHECK 0; SAMPLE LIPEMIA CHECK 0; SODIUM 140 MEQ/L (136-147); TOTAL BILIRUBIN 0.4 MG/DL (0.0-1.0); UREA NITROGEN (BUN) 14 mg/dL (9-23)
[2016-10-14] MEDS ORDERED: LEVEMIR100 UNIT/2 SC (08:06)
[2016-10-14] MEDS ORDERED: NOVOLOG PE100 UNITS/ SC (08:06)
== END 2016-10-14 10:35 | DRG 638 ==
LOC: EME 15:30 → 5EAST 19:37 → EDOF 19:37 → 4WEST 19:37 → 5EAST 10-10 16:30
PROVIDERS: Emergency Medicine; Internal Medicine; Psychiatry & Neurology Neurology; Specialist
DX: E13.10 Other specified diabetes mellitus with ketoacidosis without coma (principal); N17.9 Acute kidney failure, unspecified; R74.0 Nonspecific elevation of levels of transaminase and lactic acid dehydrogenase [LDH]; I10 Essential (primary) hypertension; F31.9 Bipolar disorder, unspecified; I25.10 Atherosclerotic heart disease of native coronary artery without angina pectoris; E78.5 Hyperlipidemia, unspecified; E11.40 Type 2 diabetes mellitus with diabetic neuropathy, unspecified; N40.1 Benign prostatic hyperplasia with lower urinary tract symptoms; R33.8 Other retention of urine; F25.9 Schizoaffective disorder, unspecified; Z66 Do not resuscitate; Z51.5 Encounter for palliative care; F70 Mild intellectual disabilities; K21.9 Gastro-esophageal reflux disease without esophagitis; Z86.73 Personal history of transient ischemic attack (TIA), and cerebral infarction without residual deficits; Z79.4 Long term (current) use of insulin; Z95.5 Presence of coronary angioplasty implant and graft; Z79.02 Long term (current) use of antithrombotics/antiplatelets; Z79.82 Long term (current) use of aspirin; Z87.891 Personal history of nicotine dependence
CPT/HCPCS: 36600; 76705; 80048; 80048 91; 80053; 80061; 80074; 81003; 82803; 82948; 83036; 83735; 84100; 84450; 84460; 84999; 85025; 87040; 87641; 99202; 99281; 99285; G0480; J1650; J1815; J7030; J7050

== ENCOUNTER 2016-11-02 11:47 | Inpatient (IN) | payer OTHER ==
[~2016-11-02] VITALS: Ht 172.7 cm; Wt 76.1 kg
[2016-11-02] VITALS (8 sets, daily range): BP systolic 110–140; BP diastolic 52–74
[2016-11-02 12:25] LABS: EOSINOPHIL (%) 0.1 % (0-5); HEMATOCRIT 31.9 % (38.0-50.0); IMMATURE GRANULOCYTE (%) 0.8 % (0.0-0.7); IMMATURE GRANULOCYTE COUNT 0.1 K/uL; INSTRUMENT ABS NEUTROPHIL CT 6.5 K/uL; LYMPHOCYTE COUNT 0.6 K/uL (1.0-2.8); MCH 31.7 PG (29.0-34.0); MCHC 33.5 G/DL (30.0-36.0); MCV 94.4 FL (86-99); MEAN PLAT.VOLUME 9.7 uM^3 (9.0-12.4); MONOCYTE (%) 5.7 % (3-12); MONOCYTE COUNT 0.4 K/uL (0-0.8); NEUTROPHIL (%) 85.6 % (45-76); NEUTROPHIL COUNT 6.5 K/uL (1.8-6.4); PLATELET COUNT 179 K/uL (156-360); RED BLOOD COUNT 3.38 M/uL (4.00-5.50); WHITE BLOOD COUNT 7.6 K/uL (4.1-10.2)
[2016-11-02 12:31] LABS: ADD MIUA? NO; BILIRUBIN NEGATIVE; BLOOD NEGATIVE; COLOR COLORLESS ((YELLOW)); GLUCOSE (STRIP) >=500; KETONES 20; LEUKOCYTES NEGATIVE; NITRITE NEGATIVE; PROTEIN (STRIP) NEGATIVE; SPECIFIC GRAVITY 1.015 (1.000-1.030); UROBILINOGEN 0.2 MG/DL (0.2-1.0)
[2016-11-02 12:33] LABS: CARBON DIOXIDE (BICARBONATE) 19.7 MEQ/L (20-31); CHLORIDE 97 mEq/L (99-109); POTASSIUM 4.5 mEq/L (3.7-5.4); SODIUM 127 mEq/L (136-147)
[2016-11-02 12:36] LABS: ANION GAP 12 MEQ/L (2-14)
[2016-11-02 12:39] LABS: GFR ESTIMATE (CALCULATED) 41 mL/min/
[2016-11-02 12:40] LABS: UREA NITROGEN (BUN) 31 mg/dL (9-23)
[2016-11-02 12:44] LABS: GLUCOSE 650 mg/dL (70-99)
[2016-11-02 14:51] LABS: POINT-OF-CARE METER ID UU13113702
[2016-11-02 14:51] LABS: POINT-OF-CARE METER ID UU13113702
[2016-11-02 15:46] LABS: Estimated Average Glucose 229 mg/dL (70-123); HEMOGLOBIN A1c (GLYCOHEMOGLOB) 9.6 % HGB (Below 5.7)
[2016-11-02 15:47] LABS: POINT-OF-CARE METER ID UU13113702
[2016-11-02] MEDS ORDERED: NOVOLOG PE100 UNITS/ SC (16:23)
[2016-11-02 16:37] LABS: POTASSIUM 4.5 mEq/L (3.7-5.4)
[2016-11-02 16:40] LABS: ANION GAP 7 MEQ/L (2-14); CHLORIDE 107 mEq/L (99-109); GLUCOSE 305 mg/dL (70-99); SODIUM 137 mEq/L (136-147)
[2016-11-02 16:42] LABS: GFR ESTIMATE (CALCULATED) 46 mL/min/
[2016-11-02 16:43] LABS: UREA NITROGEN (BUN) 26 mg/dL (9-23)
[2016-11-02 16:51] LABS: POINT-OF-CARE METER ID UU14174217
[2016-11-02 17:55] LABS: POINT-OF-CARE METER ID UU14174217
[2016-11-02 18:20] LABS: METH RESISTANT S AUREUS PCR POSITIVE (NEGATIVE)
[2016-11-02 18:45] LABS: PROBE CHECK PASS
[2016-11-02 18:55] LABS: POINT-OF-CARE METER ID UU14174217
[2016-11-02 20:09] LABS: POINT-OF-CARE METER ID UU14174217
[2016-11-02 20:18] LABS: CHLORIDE 108 mEq/L (99-109); POTASSIUM 4.4 mEq/L (3.7-5.4); SODIUM 138 mEq/L (136-147)
[2016-11-02 20:20] LABS: GLUCOSE 155 mg/dL (70-99)
[2016-11-02 20:21] LABS: ANION GAP 7 MEQ/L (2-14)
[2016-11-02 20:24] LABS: GFR ESTIMATE (CALCULATED) > 59 mL/min/
[2016-11-02 20:25] LABS: UREA NITROGEN (BUN) 22 mg/dL (9-23)
[2016-11-02 21:17] LABS: POINT-OF-CARE METER ID UU14174217
[2016-11-02 21:21] LABS: POINT-OF-CARE METER ID UU14174217
[2016-11-02 22:35] LABS: POINT-OF-CARE METER ID UU14174217
[2016-11-02 22:40] LABS: POINT-OF-CARE METER ID UU14174217
[2016-11-02 23:56] LABS: POINT-OF-CARE METER ID UU13113803
[2016-11-03] VITALS (9 sets, daily range): BP systolic 108–151; BP diastolic 55–81
[2016-11-03 01:00] LABS: CHLORIDE 110 mEq/L (99-109); POTASSIUM 4.2 mEq/L (3.7-5.4); SODIUM 140 mEq/L (136-147)
[2016-11-03 01:03] LABS: ANION GAP 8 MEQ/L (2-14)
[2016-11-03 01:04] LABS: GLUCOSE 93 mg/dL (70-99)
[2016-11-03 01:06] LABS: GFR ESTIMATE (CALCULATED) > 59 mL/min/
[2016-11-03 01:07] LABS: UREA NITROGEN (BUN) 20 mg/dL (9-23)
[2016-11-03 03:08] LABS: POINT-OF-CARE METER ID UU13113731
[2016-11-03 03:39] LABS: CHLORIDE 110 mEq/L (99-109); POTASSIUM 4.3 mEq/L (3.7-5.4); SODIUM 140 mEq/L (136-147)
[2016-11-03 03:41] LABS: GLUCOSE 126 mg/dL (70-99)
[2016-11-03 03:42] LABS: ANION GAP 6 MEQ/L (2-14)
[2016-11-03 03:45] LABS: GFR ESTIMATE (CALCULATED) > 59 mL/min/
[2016-11-03 03:46] LABS: UREA NITROGEN (BUN) 18 mg/dL (9-23)
[2016-11-03 05:38] LABS: POINT-OF-CARE METER ID UU13113731
[2016-11-03 06:59] LABS: HEMATOCRIT 30.7 % (38.0-50.0); MCH 32.2 PG (29.0-34.0); MCHC 33.9 G/DL (30.0-36.0); MEAN PLAT.VOLUME 9.3 uM^3 (9.0-12.4); PLATELET COUNT 198 K/uL (156-360); RBC DIS.WIDTH-CV 12.4 % (11.8-14.6); RBC DIS.WIDTH-SD 43.3 % (39-53); RED BLOOD COUNT 3.23 M/uL (4.00-5.50); WHITE BLOOD COUNT 4.7 K/uL (4.1-10.2)
[2016-11-03 07:15] LABS: ANION GAP 7 MEQ/L (2-14); CHLORIDE 108 MEQ/L (99-109); GFR ESTIMATE (CALCULATED) > 59 mL/min/; GLUCOSE 76 mg/dL (70-99); MAGNESIUM 1.8 mg/dl (1.3-2.7); POTASSIUM 4.3 MEQ/L (3.7-5.4); SAMPLE HEMOLYSIS CHECK 0; SAMPLE ICTERIC CHECK 0; SAMPLE LIPEMIA CHECK 0; SODIUM 140 MEQ/L (136-147); UREA NITROGEN (BUN) 17 mg/dL (9-23)
[2016-11-03 07:36] LABS: POINT-OF-CARE METER ID UU13113731
[2016-11-03 07:54] LABS: POINT-OF-CARE METER ID UU13113731
[2016-11-03 11:57] LABS: POINT-OF-CARE METER ID UU14162636
[2016-11-03 15:22] LABS: POINT-OF-CARE METER ID UU13113731
== END 2016-11-03 16:25 | DRG 638 ==
LOC: EME 11:47 → 4WEST 14:52 → EDOF 14:52 → 4WEST 15:45
PROVIDERS: Emergency Medicine; Internal Medicine Pulmonary Disease
DX: E13.10 Other specified diabetes mellitus with ketoacidosis without coma (principal); N17.9 Acute kidney failure, unspecified; F33.9 Major depressive disorder, recurrent, unspecified; N40.0 Benign prostatic hyperplasia without lower urinary tract symptoms; I25.10 Atherosclerotic heart disease of native coronary artery without angina pectoris; F20.9 Schizophrenia, unspecified; I10 Essential (primary) hypertension; J45.909 Unspecified asthma, uncomplicated; E11.40 Type 2 diabetes mellitus with diabetic neuropathy, unspecified; F79 Unspecified intellectual disabilities; E78.5 Hyperlipidemia, unspecified; E86.0 Dehydration; E87.8 Other disorders of electrolyte and fluid balance, not elsewhere classified; K21.9 Gastro-esophageal reflux disease without esophagitis; Z87.891 Personal history of nicotine dependence; Z79.4 Long term (current) use of insulin; Z79.82 Long term (current) use of aspirin; Z86.73 Personal history of transient ischemic attack (TIA), and cerebral infarction without residual deficits; Z79.02 Long term (current) use of antithrombotics/antiplatelets; Z98.61 Coronary angioplasty status; Z79.84 Long term (current) use of oral hypoglycemic drugs; Z82.49 Family history of ischemic heart disease and other diseases of the circulatory system
CPT/HCPCS: 80048; 80048 91; 81003; 82803; 82948; 83036; 83735; 84100; 85025; 85027; 87641; J1815; J1885; J7030

== ENCOUNTER 2016-11-16 10:10 | Emergency (ER) | payer OTHER ==
[~2016-11-16] VITALS: Ht 172.7 cm; Wt 80.9 kg
[2016-11-16 10:52] LABS: CREATININE 1.3 mg/dL (0.6-1.3); POTASSIUM 4.3 mEq/L (3.7-5.4)
[2016-11-16 11:00] LABS: CARBON DIOXIDE (BICARBONATE) 23.4 MEQ/L (20-31)
[2016-11-16 11:02] LABS: EOSINOPHIL (%) 0.1 % (0-5); HEMATOCRIT 31.7 % (38.0-50.0); IMMATURE GRANULOCYTE (%) 0.4 % (0.0-0.7); INSTRUMENT ABS NEUTROPHIL CT 8.2 K/uL; LYMPHOCYTE COUNT 0.5 K/uL (1.0-2.8); MCH 30.9 PG (29.0-34.0); MCHC 32.8 G/DL (30.0-36.0); MCV 94.1 FL (86-99); MEAN PLAT.VOLUME 9.6 uM^3 (9.0-12.4); MONOCYTE (%) 5.7 % (3-12); MONOCYTE COUNT 0.5 K/uL (0-0.8); NEUTROPHIL COUNT 8.2 K/uL (1.8-6.4); PLATELET COUNT 181 K/uL (156-360); RBC DIS.WIDTH-CV 12.2 % (11.8-14.6); RED BLOOD COUNT 3.37 M/uL (4.00-5.50); WHITE BLOOD COUNT 9.3 K/uL (4.1-10.2)
[2016-11-16 11:10] LABS: CHLORIDE 100 mEq/L (99-109); POTASSIUM 4.3 mEq/L (3.7-5.4)
[2016-11-16 11:11] LABS: MAGNESIUM 1.9 mg/dL (1.3-2.7); SODIUM 131 mEq/L (136-147)
[2016-11-16 11:14] LABS: ANION GAP 9 MEQ/L (2-14); TOTAL BILIRUBIN 0.3 mg/dL (0.0-1.0)
[2016-11-16 11:16] LABS: ALKALINE PHOSPHATASE 95 IU/L (3-129); GFR ESTIMATE (CALCULATED) 38 mL/min/
[2016-11-16 11:34] LABS: GLUCOSE 627 mg/dL (70-99); UREA NITROGEN (BUN) 33 mg/dL (9-23)
[2016-11-16 13:36] LABS: POINT-OF-CARE METER ID UU13113747
[2016-11-16 13:56] LABS: CHLORIDE 107 mEq/L (99-109); POTASSIUM 4.5 mEq/L (3.7-5.4); SODIUM 136 mEq/L (136-147)
[2016-11-16 13:57] LABS: GLUCOSE 390 mg/dL (70-99)
[2016-11-16 13:59] LABS: ANION GAP 7 MEQ/L (2-14)
[2016-11-16 14:01] LABS: GFR ESTIMATE (CALCULATED) 43 mL/min/
[2016-11-16 14:02] LABS: UREA NITROGEN (BUN) 30 mg/dL (9-23)
[2016-11-16 17:14] VITALS: BP 114/80
== END 2016-11-16 17:18 ==
LOC: EME 10:10
PROVIDERS: Emergency Medicine
DX: E11.65 Type 2 diabetes mellitus with hyperglycemia (principal); E86.0 Dehydration; E78.5 Hyperlipidemia, unspecified; F31.9 Bipolar disorder, unspecified; J45.909 Unspecified asthma, uncomplicated; I10 Essential (primary) hypertension; K21.9 Gastro-esophageal reflux disease without esophagitis; F79 Unspecified intellectual disabilities; Z86.73 Personal history of transient ischemic attack (TIA), and cerebral infarction without residual deficits; I25.10 Atherosclerotic heart disease of native coronary artery without angina pectoris; Z87.891 Personal history of nicotine dependence; Z79.4 Long term (current) use of insulin
CPT/HCPCS: 80047; 80048 91; 80053; 82010; 82803; 82948; 83735; 84100; 85025; 93005; 99281; 99285; J7030

== ENCOUNTER 2017-03-18 04:16 | Inpatient (IN) | payer OTHER ==
[2017-03-18] VITALS (16 sets, daily range): BP systolic 96–138; BP diastolic 44–69
[~2017-03-18] VITALS: Ht 172.7 cm; Wt 75.5 kg
[2017-03-18 05:02] LABS: EOSINOPHIL (%) 0.1 % (0-5); HEMATOCRIT 35.4 % (38.0-50.0); IMMATURE GRANULOCYTE (%) 0.4 % (0.0-0.7); LYMPHOCYTE COUNT 0.4 K/uL (1.0-2.8); MCH 31.4 PG (29.0-34.0); MCHC 33.1 G/DL (30.0-36.0); MCV 94.9 FL (86-99); MEAN PLAT.VOLUME 9.4 uM^3 (9.0-12.4); MONOCYTE (%) 4.3 % (3-12); MONOCYTE COUNT 0.3 K/uL (0-0.8); PLATELET COUNT 220 K/uL (156-360); RBC DIS.WIDTH-CV 12.3 % (11.8-14.6); RBC DIS.WIDTH-SD 43.2 % (39-53); RED BLOOD COUNT 3.73 M/uL (4.00-5.50); WHITE BLOOD COUNT 7.7 K/uL (4.1-10.2)
[2017-03-18 05:15] LABS: CARBON DIOXIDE (BICARBONATE) 12.1 MEQ/L (20-31); CHLORIDE 95 mEq/L (99-109); SODIUM 130 mEq/L (136-147)
[2017-03-18 05:18] LABS: ANION GAP 26 MEQ/L (2-14)
[2017-03-18 05:19] LABS: TOTAL BILIRUBIN 0.2 mg/dL (0.0-1.0)
[2017-03-18 05:20] LABS: ALKALINE PHOSPHATASE 156 IU/L (3-129)
[2017-03-18 05:36] LABS: GFR ESTIMATE (CALCULATED) 28 mL/min/; UREA NITROGEN (BUN) 44 mg/dL (9-23)
[2017-03-18 05:37] LABS: GLUCOSE 771 mg/dL (70-99)
[2017-03-18 05:54] LABS: TROP-I INTERPRETATION NEGATIVE; TROPONIN-I 0.04 ng/mL (0.0-0.30)
[2017-03-18 06:25] LABS: SAMPLE HEMOLYSIS CHECK 0; SAMPLE ICTERIC CHECK 0; SAMPLE LIPEMIA CHECK 0
[2017-03-18 09:26] LABS: POINT-OF-CARE METER ID UU13113731
[2017-03-18 09:37] LABS: METH RESISTANT S AUREUS PCR POSITIVE (NEGATIVE)
[2017-03-18 09:42] LABS: PROBE CHECK PASS
[2017-03-18 10:31] LABS: ANION GAP 15 MEQ/L (2-14); POTASSIUM 4.4 MEQ/L (3.7-5.4); SAMPLE HEMOLYSIS CHECK 0; SAMPLE ICTERIC CHECK 0; SAMPLE LIPEMIA CHECK 0; SODIUM 135 MEQ/L (136-147); UREA NITROGEN (BUN) 42 mg/dL (9-23)
[2017-03-18 10:39] LABS: POINT-OF-CARE METER ID UU13113731
[2017-03-18 10:40] LABS: CHLORIDE 104 MEQ/L (99-109); GFR ESTIMATE (CALCULATED) 41 mL/min/; GLUCOSE 410 mg/dL (70-99)
[2017-03-18 11:41] LABS: POINT-OF-CARE METER ID UU13113731
[2017-03-18 12:36] LABS: POINT-OF-CARE METER ID UU13113731
[2017-03-18] MEDS ORDERED: ATORVASTATIN CA40 MG PO (12:41)
[2017-03-18] MEDS ORDERED: NOVOLOG 10100 UNITS/ SC ×2 (12:44→12:48)
[2017-03-18] MEDS ORDERED: LOSARTAN POTASS50 MG PO (12:47)
[2017-03-18] MEDS ORDERED: BENADRYL25 MG PO (12:49)
[2017-03-18] MEDS ORDERED: GLUCOSE GEL38 GM PO (12:54)
[2017-03-18] MEDS ORDERED: GLUCAGON1 MG IM (12:54)
[2017-03-18] MEDS ORDERED: TYLENOL REGULA325 MG PO (12:55)
[2017-03-18 13:41] LABS: POINT-OF-CARE METER ID UU13113803
[2017-03-18 13:51] LABS: ANION GAP 9 MEQ/L (2-14); CHLORIDE 108 MEQ/L (99-109); GFR ESTIMATE (CALCULATED) 46 mL/min/; GLUCOSE 251 mg/dL (70-99); MAGNESIUM 2.3 mg/dl (1.3-2.7); POTASSIUM 4.7 MEQ/L (3.7-5.4); SAMPLE HEMOLYSIS CHECK 0; SAMPLE ICTERIC CHECK 0; SAMPLE LIPEMIA CHECK 0; SODIUM 137 MEQ/L (136-147); UREA NITROGEN (BUN) 38 mg/dL (9-23)
[2017-03-18 14:44] LABS: POINT-OF-CARE METER ID UU13113803
[2017-03-18 15:43] LABS: POINT-OF-CARE METER ID UU13113803
[2017-03-18 16:43] LABS: POINT-OF-CARE METER ID UU13113731
[2017-03-18 17:27] LABS: ANION GAP 11 MEQ/L (2-14); CHLORIDE 108 MEQ/L (99-109); GFR ESTIMATE (CALCULATED) 54 mL/min/; GLUCOSE 188 mg/dL (70-99); POTASSIUM 4.2 MEQ/L (3.7-5.4); SAMPLE HEMOLYSIS CHECK 0; SAMPLE ICTERIC CHECK 0; SAMPLE LIPEMIA CHECK 0; SODIUM 138 MEQ/L (136-147); UREA NITROGEN (BUN) 34 mg/dL (9-23)
[2017-03-18 17:36] LABS: POINT-OF-CARE METER ID UU13113731
[2017-03-18 18:34] LABS: POINT-OF-CARE METER ID UU13113731
[2017-03-18 18:50] LABS: POINT-OF-CARE METER ID UU13113731
[2017-03-18 20:07] LABS: ANION GAP 9 MEQ/L (2-14); CHLORIDE 107 MEQ/L (99-109); SAMPLE HEMOLYSIS CHECK 0; SAMPLE ICTERIC CHECK 0; SAMPLE LIPEMIA CHECK 0; SODIUM 136 MEQ/L (136-147)
[2017-03-18 20:07] LABS: POINT-OF-CARE METER ID UU13113731
[2017-03-18 20:12] LABS: GFR ESTIMATE (CALCULATED) > 59 mL/min/; GLUCOSE 194 mg/dL (70-99); UREA NITROGEN (BUN) 28 mg/dL (9-23)
[2017-03-18 21:11] LABS: POINT-OF-CARE METER ID UU13113731
[2017-03-18 22:23] LABS: POINT-OF-CARE METER ID UU13113803
[2017-03-18 23:28] LABS: POINT-OF-CARE METER ID UU13113731
[2017-03-19] VITALS (15 sets, daily range): BP systolic 122–162; BP diastolic 56–83
[2017-03-19 00:30] LABS: POINT-OF-CARE METER ID UU13113731
[2017-03-19 00:55] LABS: SODIUM 137 mEq/L (136-147)
[2017-03-19 00:57] LABS: GLUCOSE 149 mg/dL (70-99)
[2017-03-19 00:58] LABS: ANION GAP 10 MEQ/L (2-14); CHLORIDE 109 mEq/L (99-109)
[2017-03-19 01:01] LABS: GFR ESTIMATE (CALCULATED) > 59 mL/min/
[2017-03-19 01:02] LABS: UREA NITROGEN (BUN) 25 mg/dL (9-23)
[2017-03-19 01:30] LABS: POINT-OF-CARE METER ID UU13113731
[2017-03-19 02:21] LABS: POINT-OF-CARE METER ID UU13113731
[2017-03-19 03:32] LABS: POINT-OF-CARE METER ID UU13113731
[2017-03-19 05:33] LABS: POINT-OF-CARE METER ID UU13113731
[2017-03-19 07:23] LABS: ANION GAP 7 MEQ/L (2-14); CHLORIDE 107 MEQ/L (99-109); GFR ESTIMATE (CALCULATED) > 59 mL/min/; GLUCOSE 173 mg/dL (70-99); POTASSIUM 3.8 MEQ/L (3.7-5.4); SAMPLE HEMOLYSIS CHECK 0; SAMPLE ICTERIC CHECK 0; SAMPLE LIPEMIA CHECK 0; SODIUM 137 MEQ/L (136-147); UREA NITROGEN (BUN) 19 mg/dL (9-23)
[2017-03-19 07:32] LABS: ANION GAP 9 MEQ/L (2-14); CHLORIDE 107 MEQ/L (99-109); GFR ESTIMATE (CALCULATED) > 59 mL/min/; GLUCOSE 174 mg/dL (70-99); POTASSIUM 3.7 MEQ/L (3.7-5.4); SAMPLE HEMOLYSIS CHECK 0; SAMPLE ICTERIC CHECK 0; SAMPLE LIPEMIA CHECK 0; SODIUM 137 MEQ/L (136-147); UREA NITROGEN (BUN) 19 mg/dL (9-23)
[2017-03-19 07:35] LABS: POINT-OF-CARE METER ID UU13113731
[2017-03-19 09:00] LABS: Estimated Average Glucose 258 mg/dL (70-123); HEMOGLOBIN A1c (GLYCOHEMOGLOB) 10.6 % HGB (Below 5.7)
[2017-03-19 09:02] LABS: ANION GAP 5 MEQ/L (2-14); CHLORIDE 108 MEQ/L (99-109); GFR ESTIMATE (CALCULATED) > 59 mL/min/; GLUCOSE 160 mg/dL (70-99); SAMPLE HEMOLYSIS CHECK 0; SAMPLE ICTERIC CHECK 0; SAMPLE LIPEMIA CHECK 0; SODIUM 136 MEQ/L (136-147); UREA NITROGEN (BUN) 17 mg/dL (9-23)
[2017-03-19 12:34] LABS: POINT-OF-CARE METER ID UU13113747; POINT-OF-CARE USER ID NUTJNM
[2017-03-19 12:34] LABS: POINT-OF-CARE METER ID UU13113731
[2017-03-19 13:55] LABS: ANION GAP 10 MEQ/L (2-14); CHLORIDE 102 MEQ/L (99-109); POTASSIUM 4.5 MEQ/L (3.7-5.4); SAMPLE HEMOLYSIS CHECK 0; SAMPLE ICTERIC CHECK 0; SAMPLE LIPEMIA CHECK 0; SODIUM 131 MEQ/L (136-147)
[2017-03-19 14:05] LABS: GFR ESTIMATE (CALCULATED) > 59 mL/min/; UREA NITROGEN (BUN) 20 mg/dL (9-23)
[2017-03-19 14:07] LABS: GLUCOSE 506 mg/dL (70-99)
[2017-03-19 16:09] LABS: ANION GAP 8 MEQ/L (2-14); CHLORIDE 102 MEQ/L (99-109); POTASSIUM 4.2 MEQ/L (3.7-5.4); SAMPLE HEMOLYSIS CHECK 0; SAMPLE ICTERIC CHECK 0; SAMPLE LIPEMIA CHECK 0; SODIUM 131 MEQ/L (136-147)
[2017-03-19 16:20] LABS: GFR ESTIMATE (CALCULATED) > 59 mL/min/; GLUCOSE 326 mg/dL (70-99); UREA NITROGEN (BUN) 19 mg/dL (9-23)
[2017-03-19 18:37] LABS: ANION GAP 7 MEQ/L (2-14); CHLORIDE 103 MEQ/L (99-109); POTASSIUM 4.2 MEQ/L (3.7-5.4); SAMPLE HEMOLYSIS CHECK 0; SAMPLE ICTERIC CHECK 0; SAMPLE LIPEMIA CHECK 0; SODIUM 133 MEQ/L (136-147)
[2017-03-19 18:44] LABS: GFR ESTIMATE (CALCULATED) > 59 mL/min/; UREA NITROGEN (BUN) 17 mg/dL (9-23)
[2017-03-19 18:45] LABS: GLUCOSE 110 mg/dL (70-99)
[2017-03-19 21:13] LABS: POINT-OF-CARE METER ID UU14314082
[2017-03-19 21:39] LABS: POINT-OF-CARE METER ID UU14314082
[2017-03-20] VITALS (11 sets, daily range): BP systolic 118–166; BP diastolic 56–88
[2017-03-20 00:50] LABS: POINT-OF-CARE METER ID UU14314082
[2017-03-20 05:14] LABS: CHLORIDE 107 mEq/L (99-109); POTASSIUM 4.5 mEq/L (3.7-5.4); SODIUM 139 mEq/L (136-147)
[2017-03-20 05:15] LABS: POINT-OF-CARE METER ID UU13113731
[2017-03-20 05:17] LABS: ANION GAP 10 MEQ/L (2-14)
[2017-03-20 05:19] LABS: GFR ESTIMATE (CALCULATED) > 59 mL/min/
[2017-03-20 05:20] LABS: UREA NITROGEN (BUN) 16 mg/dL (9-23)
[2017-03-20 05:32] LABS: GLUCOSE 305 mg/dL (70-99)
[2017-03-20 08:58] LABS: POINT-OF-CARE METER ID UU13113731
[2017-03-20 13:16] LABS: POINT-OF-CARE METER ID UU13113731
[2017-03-20 17:00] LABS: POINT-OF-CARE METER ID UU14117124
[2017-03-20 21:19] LABS: POINT-OF-CARE METER ID UU14117124
[2017-03-21 03:26] VITALS: BP 136/70
[2017-03-21 05:02] LABS: MCHC 33.9 G/DL (30.0-36.0); MCV 91.4 FL (86-99); MEAN PLAT.VOLUME 9.1 uM^3 (9.0-12.4); PLATELET COUNT 181 K/uL (156-360); RBC DIS.WIDTH-CV 12.5 % (11.8-14.6); RBC DIS.WIDTH-SD 42.4 % (39-53); RED BLOOD COUNT 3.61 M/uL (4.00-5.50); WHITE BLOOD COUNT 4.1 K/uL (4.1-10.2)
[2017-03-21 05:04] LABS: CHLORIDE 107 mEq/L (99-109); POTASSIUM 4.3 mEq/L (3.7-5.4); SODIUM 139 mEq/L (136-147)
[2017-03-21 05:06] LABS: GLUCOSE 306 mg/dL (70-99)
[2017-03-21 05:07] LABS: ANION GAP 8 MEQ/L (2-14)
[2017-03-21 05:10] LABS: GFR ESTIMATE (CALCULATED) > 59 mL/min/; UREA NITROGEN (BUN) 19 mg/dL (9-23)
[2017-03-21 06:32] LABS: POINT-OF-CARE METER ID UU14188577
[2017-03-21 08:06] VITALS: BP 172/82
[2017-03-21 11:52] LABS: POINT-OF-CARE METER ID UU14117124
[2017-03-21 11:54] VITALS: BP 152/76
== END 2017-03-21 13:33 | DRG 638 ==
LOC: EME → EDBD 04:16 → EDOF 06:36 → 4WEST 06:36 → CANRESERV 06:37 → ENRESERV 06:37 → 4WEST 07:55 → ENRESERV 03-20 06:22 → 4WEST 03-20 06:22 → ENRESERV 03-20 14:20 → 3EAST 03-20 16:14
PROVIDERS: Emergency Medicine; Family Medicine; Internal Medicine; Internal Medicine Critical Care Medicine; Specialist
DX: E11.10 Type 2 diabetes mellitus with ketoacidosis without coma (principal); I10 Essential (primary) hypertension; F20.9 Schizophrenia, unspecified; N17.9 Acute kidney failure, unspecified; Z86.73 Personal history of transient ischemic attack (TIA), and cerebral infarction without residual deficits; E78.5 Hyperlipidemia, unspecified; N40.0 Benign prostatic hyperplasia without lower urinary tract symptoms; D64.9 Anemia, unspecified; E87.1 Hypo-osmolality and hyponatremia; F79 Unspecified intellectual disabilities; J45.909 Unspecified asthma, uncomplicated; K21.9 Gastro-esophageal reflux disease without esophagitis; Z87.891 Personal history of nicotine dependence; Z79.4 Long term (current) use of insulin; F31.9 Bipolar disorder, unspecified
CPT/HCPCS: 71010; 80048; 80048 91; 80053; 81003; 82010; 82803; 82948; 83036; 83605; 83735; 84100; 84484; 85025; 85027; 87040; 87641; 93005; 99281; 99285; J1815; J7030; J7050

== ENCOUNTER 2017-04-15 23:13 | Emergency (ER) | payer OTHER ==
[~2017-04-15] VITALS: Ht 172.7 cm; Wt 71.7 kg
[~2017-04-15 23:13] MED LIST changes: +GLUCOSE GEL38 GM PO
[2017-04-15 23:40] LABS: HEMATOCRIT 33.7 % (38.0-50.0); MCH 32.1 PG (29.0-34.0); MCHC 35.3 G/DL (30.0-36.0); MCV 90.8 FL (86-99); MEAN PLAT.VOLUME 8.7 uM^3 (9.0-12.4); PLATELET COUNT 192 K/uL (156-360); RBC DIS.WIDTH-CV 12.5 % (11.8-14.6); RBC DIS.WIDTH-SD 41.3 % (39-53); RED BLOOD COUNT 3.71 M/uL (4.00-5.50); WHITE BLOOD COUNT 5.4 K/uL (4.1-10.2)
[2017-04-15 23:48] LABS: CHLORIDE 102 mEq/L (99-109); POTASSIUM 4.3 mEq/L (3.7-5.4); SODIUM 130 mEq/L (136-147)
[2017-04-15 23:51] LABS: ANION GAP 10 MEQ/L (2-14)
[2017-04-15 23:53] LABS: GFR ESTIMATE (CALCULATED) 43 mL/min/
[2017-04-15 23:54] LABS: UREA NITROGEN (BUN) 30 mg/dL (9-23)
[2017-04-15 23:57] LABS: GLUCOSE 462 mg/dL (70-99)
[2017-04-16 00:33] LABS: POINT-OF-CARE METER ID UU13113747
[2017-04-16] MEDS ORDERED: ECOTRIN325 MG PO (00:41)
[2017-04-16] MEDS ORDERED: LIPITOR40 MG PO (00:42)
[2017-04-16] MEDS ORDERED: PLAVIX75 MG PO (00:43)
[2017-04-16] MEDS ORDERED: CLARITIN,ALAVAR10 MG PO (00:43)
[2017-04-16] MEDS ORDERED: NEURONTIN300 MG PO (00:44)
[2017-04-16] MEDS ORDERED: LEVEMIR100 UNIT/2 SC ×2 (00:44→00:45)
[2017-04-16] MEDS ORDERED: NOVOLOG 10100 UNITS/ SC ×2 (00:46→00:55)
[2017-04-16] MEDS ORDERED: MIRALAX17 GM PO (00:48)
[2017-04-16] MEDS ORDERED: RISPERDAL1 MG PO (00:48)
[2017-04-16] MEDS ORDERED: SENNA8.6 MG PO (00:49)
[2017-04-16] MEDS ORDERED: RISPERDAL2 MG PO (00:49)
[2017-04-16] MEDS ORDERED: SERTRALINE HCL50 MG PO (00:50)
[2017-04-16] MEDS ORDERED: DESYREL100 MG PO (00:50)
[2017-04-16] MEDS ORDERED: FLOMAX0.4 MG PO (00:50)
[2017-04-16] MEDS ORDERED: COZAAR50 MG PO (00:51)
[2017-04-16] MEDS ORDERED: COLACE100 MG PO (00:51)
[2017-04-16] MEDS ORDERED: GUAIFENESIN600 M1 PO (00:53)
[2017-04-16] MEDS ORDERED: GLUCAGEN1 M1 IM (00:56)
[2017-04-16] MEDS ORDERED: FLEET ENEMA-AD118 ML PR (00:56)
[2017-04-16] MEDS ORDERED: DULCOLAX10 MG PR (00:56)
[2017-04-16] MEDS ORDERED: GLUCOSE GEL38 GM PO (00:57)
[2017-04-16] MEDS ORDERED: MILK OF MAGN PO (00:57)
[2017-04-16] MEDS ORDERED: TYLENOL ARTHRI650 MG PO (00:59)
[2017-04-16 01:25] LABS: POINT-OF-CARE METER ID UU13113747
[2017-04-16 01:37] LABS: CHLORIDE 109 mEq/L (99-109); SODIUM 136 mEq/L (136-147)
[2017-04-16 01:38] LABS: GLUCOSE 272 mg/dL (70-99)
[2017-04-16 01:40] LABS: ADD MIUA? NO; BILIRUBIN NEGATIVE; BLOOD NEGATIVE; COLOR COLORLESS ((YELLOW)); GLUCOSE (STRIP) >=500; KETONES 5; LEUKOCYTES NEGATIVE; NITRITE NEGATIVE; PROTEIN (STRIP) NEGATIVE; SPECIFIC GRAVITY 1.006 (1.000-1.030); UCUL ADDED? NO; UROBILINOGEN 0.2 MG/DL (0.2-1.0)
[2017-04-16 01:40] LABS: ANION GAP 9 MEQ/L (2-14)
[2017-04-16 01:42] LABS: GFR ESTIMATE (CALCULATED) 50 mL/min/
[2017-04-16 01:43] LABS: UREA NITROGEN (BUN) 27 mg/dL (9-23)
[2017-04-16 03:41] LABS: POINT-OF-CARE METER ID UU13113747
[2017-04-16 03:56] VITALS: BP 101/55
[2017-04-16 04:28] LABS: SAMPLE HEMOLYSIS CHECK 0; SAMPLE ICTERIC CHECK 0; SAMPLE LIPEMIA CHECK 0
== END 2017-04-16 03:57 ==
LOC: EME 23:13
PROVIDERS: Emergency Medicine
DX: E11.65 Type 2 diabetes mellitus with hyperglycemia (principal); Z79.4 Long term (current) use of insulin; I10 Essential (primary) hypertension; E78.5 Hyperlipidemia, unspecified; Z79.02 Long term (current) use of antithrombotics/antiplatelets; Z79.82 Long term (current) use of aspirin; Z87.891 Personal history of nicotine dependence
CPT/HCPCS: 80048; 81003; 82010; 82948; 85027; 99281; 99285; J7030

== ENCOUNTER 2017-04-23 21:26 | Emergency (ER) | payer OTHER ==
[~2017-04-23] VITALS: Ht 172.7 cm; Wt 81.1 kg
[~2017-04-23 21:26] MED LIST changes: +CLARITIN,ALAVAR10 MG PO; +DESYREL100 MG PO; +FLOMAX0.4 MG PO; +GLUCAGEN1 M1 IM; +GUAIFENESIN600 M1 PO; +MIRALAX17 GM PO; +TYLENOL ARTHRI650 MG PO
[2017-04-23 22:42] LABS: CARBON DIOXIDE (BICARBONATE) 26.8 MEQ/L (20-31)
[2017-04-23 22:43] LABS: HEMATOCRIT 32.2 % (38.0-50.0); MCH 31.6 PG (29.0-34.0); MCHC 34.5 G/DL (30.0-36.0); MCV 91.7 FL (86-99); MEAN PLAT.VOLUME 9.1 uM^3 (9.0-12.4); PLATELET COUNT 211 K/uL (156-360); RBC DIS.WIDTH-CV 12.6 % (11.8-14.6); RBC DIS.WIDTH-SD 42.1 % (39-53); RED BLOOD COUNT 3.51 M/uL (4.00-5.50); WHITE BLOOD COUNT 4.8 K/uL (4.1-10.2)
[2017-04-23 22:53] LABS: ADD MIUA? NO; BILIRUBIN NEGATIVE; BLOOD NEGATIVE; COLOR COLORLESS ((YELLOW)); GLUCOSE (STRIP) >=500; KETONES NEGATIVE; LEUKOCYTES NEGATIVE; NITRITE NEGATIVE; PROTEIN (STRIP) NEGATIVE; UROBILINOGEN 0.2 MG/DL (0.2-1.0)
[2017-04-23 23:00] LABS: CHLORIDE 100 mEq/L (99-109); POTASSIUM 4.2 mEq/L (3.7-5.4)
[2017-04-23 23:03] LABS: ANION GAP 8 MEQ/L (2-14)
[2017-04-23 23:06] LABS: GFR ESTIMATE (CALCULATED) 50 mL/min/; UREA NITROGEN (BUN) 24 mg/dL (9-23)
[2017-04-23 23:11] LABS: GLUCOSE 444 mg/dL (70-99); SODIUM 131 mEq/L (136-147)
[2017-04-24 00:22] LABS: POINT-OF-CARE METER ID UU13113747
[2017-04-24 01:06] VITALS: BP 101/72
== END 2017-04-24 01:15 ==
LOC: EME → EDBD 21:26 → EME 04-24 01:15
PROVIDERS: Nurse Practitioner Family
DX: E11.65 Type 2 diabetes mellitus with hyperglycemia (principal); I12.9 Hypertensive chronic kidney disease with stage 1 through stage 4 chronic kidney disease, or unspecified chronic kidney disease; E11.22 Type 2 diabetes mellitus with diabetic chronic kidney disease; N18.9 Chronic kidney disease, unspecified; Z79.4 Long term (current) use of insulin; E78.5 Hyperlipidemia, unspecified; J45.909 Unspecified asthma, uncomplicated; K21.9 Gastro-esophageal reflux disease without esophagitis; F32.9 Major depressive disorder, single episode, unspecified; N40.0 Benign prostatic hyperplasia without lower urinary tract symptoms; Z86.73 Personal history of transient ischemic attack (TIA), and cerebral infarction without residual deficits; Z87.891 Personal history of nicotine dependence
CPT/HCPCS: 80048; 81003; 82010; 82803; 82948; 85027; 99281; 99285; J7030

== ENCOUNTER 2017-07-23 08:34 | Inpatient (IN) | payer OTHER ==
[~2017-07-23] VITALS: Ht 172.7 cm; Wt 82.7 kg
[2017-07-23] VITALS (10 sets, daily range): BP systolic 93–122; BP diastolic 42–55
[~2017-07-23 08:34] MED LIST changes: +ASPIR-LOW81 MG PO
[2017-07-23 09:32] LABS: CARBON DIOXIDE (BICARBONATE) 20.1 MEQ/L (20-31)
[2017-07-23 09:41] LABS: BASOPHIL (%) 0.1 % (0-1); EOSINOPHIL (%) 0.4 % (0-5); HEMATOCRIT 15.7 % (38.0-50.0); HEMOGLOBIN 5.3 G/DL (12.5-16.6); IMMATURE GRANULOCYTE (%) 0.5 % (0.0-0.7); LYMPHOCYTE (%) 12.2 % (15-42); LYMPHOCYTE COUNT 0.9 K/uL (1.0-2.8); MCH 31.5 PG (29.0-34.0); MCHC 33.8 G/DL (30.0-36.0); MCV 93.5 FL (86-99); MONOCYTE (%) 6.3 % (3-12); MONOCYTE COUNT 0.5 K/uL (0-0.8); NEUTROPHIL (%) 80.5 % (45-76); NEUTROPHIL COUNT 5.9 K/uL (1.8-6.4); PLATELET COUNT 183 K/uL (156-360); RBC DIS.WIDTH-CV 12.1 % (11.8-14.6); RBC DIS.WIDTH-SD 41.1 % (39-53); RED BLOOD COUNT 1.68 M/uL (4.00-5.50); WHITE BLOOD COUNT 7.3 K/uL (4.1-10.2)
[2017-07-23 09:44] LABS: ALBUMIN 2.6 g/dL (3.2-4.8); CHLORIDE 110 mEq/L (99-109); SODIUM 134 mEq/L (136-147)
[2017-07-23 09:47] LABS: GLUCOSE 314 mg/dL (70-99); TOTAL PROTEIN 4.3 g/dL (6.4-8.3)
[2017-07-23 09:49] LABS: TOTAL BILIRUBIN 0.2 mg/dL (0.0-1.0)
[2017-07-23 09:50] LABS: ALKALINE PHOSPHATASE 81 IU/L (3-129); CREATININE 1.3 mg/dL (0.6-1.3); GFR ESTIMATE (CALCULATED) 59 mL/min/ (58.99-99999)
[2017-07-23 09:51] LABS: UREA NITROGEN (BUN) 82 mg/dL (9-23)
[2017-07-23 09:52] LABS: AST (GOT) 11 IU/L (2-34)
[2017-07-23 09:53] LABS: ALT (GPT) 26 IU/L (3-49)
[2017-07-23 09:56] LABS: TROP-I INTERPRETATION NEGATIVE; TROPONIN-I < 0.01 ng/mL (0.0-0.30)
[2017-07-23] MEDS ORDERED: FOLIC ACID1 MG PO (13:11)
[2017-07-23] MEDS ORDERED: LOSARTAN POTASS25 MG PO (13:14)
[2017-07-23] MEDS ORDERED: MAG-OXIDE400 MG PO (13:15)
[2017-07-23] MEDS ORDERED: NOVOLOG PE100 UNITS/ SC ×2 (13:17)
[2017-07-23] MEDS ORDERED: MIRALAX17 GM PO (13:18)
[2017-07-23] MEDS ORDERED: THIAMINE HCL100 MG PO (13:20)
[2017-07-23] MEDS ORDERED: BENADRYL25 MG PO (13:22)
[2017-07-23 17:23] LABS: HEMATOCRIT 21.2 % (38.0-50.0); HEMOGLOBIN 7.2 G/DL (12.5-16.6); MCV 92.2 FL (86-99)
[2017-07-23 18:09] LABS: INTER. NORMALIZED RATIO 1.1
[2017-07-23 18:11] LABS: PTT 23.1 SEC (25-37)
[2017-07-24] VITALS (11 sets, daily range): BP systolic 101–167; BP diastolic 48–74
[2017-07-24 01:57] LABS: BASOPHIL (%) 0.3 % (0-1); EOSINOPHIL (%) 2.8 % (0-5); EOSINOPHIL COUNT 0.3 K/uL (0-0.3); HEMATOCRIT 23.3 % (38.0-50.0); HEMOGLOBIN 8.1 G/DL (12.5-16.6); IMMATURE GRANULOCYTE (%) 0.2 % (0.0-0.7); LYMPHOCYTE COUNT 1.5 K/uL (1.0-2.8); MCH 31.4 PG (29.0-34.0); MCHC 34.8 G/DL (30.0-36.0); MCV 90.3 FL (86-99); MONOCYTE (%) 6.6 % (3-12); MONOCYTE COUNT 0.6 K/uL (0-0.8); NEUTROPHIL (%) 74.1 % (45-76); NEUTROPHIL COUNT 6.8 K/uL (1.8-6.4); PLATELET COUNT 135 K/uL (156-360); RBC DIS.WIDTH-CV 14.4 % (11.8-14.6); RBC DIS.WIDTH-SD 46.5 % (39-53); WHITE BLOOD COUNT 9.2 K/uL (4.1-10.2)
[2017-07-24 02:02] LABS: RED BLOOD COUNT 2.58 M/uL (4.00-5.50)
[2017-07-24 08:02] LABS: BASOPHIL (%) 0.5 % (0-1); EOSINOPHIL (%) 4.3 % (0-5); EOSINOPHIL COUNT 0.3 K/uL (0-0.3); HEMATOCRIT 26.5 % (38.0-50.0); HEMOGLOBIN 9.1 G/DL (12.5-16.6); IMMATURE GRANULOCYTE (%) 0.3 % (0.0-0.7); LYMPHOCYTE (%) 12.6 % (15-42); LYMPHOCYTE COUNT 0.9 K/uL (1.0-2.8); MCH 31.4 PG (29.0-34.0); MCHC 34.3 G/DL (30.0-36.0); MCV 91.4 FL (86-99); MONOCYTE (%) 7.3 % (3-12); MONOCYTE COUNT 0.5 K/uL (0-0.8); NEUTROPHIL COUNT 5.5 K/uL (1.8-6.4); PLATELET COUNT 141 K/uL (156-360); RBC DIS.WIDTH-CV 14.8 % (11.8-14.6); RBC DIS.WIDTH-SD 48.7 % (39-53); WHITE BLOOD COUNT 7.4 K/uL (4.1-10.2)
[2017-07-24 12:58] LABS: BASOPHIL (%) 0.7 % (0-1); BASOPHIL COUNT 0.1 K/uL (0-0.1); EOSINOPHIL (%) 5.2 % (0-5); EOSINOPHIL COUNT 0.4 K/uL (0-0.3); HEMATOCRIT 27.5 % (38.0-50.0); HEMOGLOBIN 9.2 G/DL (12.5-16.6); IMMATURE GRANULOCYTE (%) 0.5 % (0.0-0.7); LYMPHOCYTE (%) 12.3 % (15-42); LYMPHOCYTE COUNT 0.9 K/uL (1.0-2.8); MCH 30.8 PG (29.0-34.0); MCHC 33.5 G/DL (30.0-36.0); MONOCYTE (%) 6.8 % (3-12); MONOCYTE COUNT 0.5 K/uL (0-0.8); NEUTROPHIL (%) 74.5 % (45-76); NEUTROPHIL COUNT 5.5 K/uL (1.8-6.4); PLATELET COUNT 144 K/uL (156-360); RBC DIS.WIDTH-CV 15.4 % (11.8-14.6); RBC DIS.WIDTH-SD 50.8 % (39-53); RED BLOOD COUNT 2.99 M/uL (4.00-5.50); WHITE BLOOD COUNT 7.5 K/uL (4.1-10.2)
[2017-07-24 19:19] LABS: BASOPHIL (%) 0.7 % (0-1); BASOPHIL COUNT 0.1 K/uL (0-0.1); EOSINOPHIL (%) 6.7 % (0-5); EOSINOPHIL COUNT 0.5 K/uL (0-0.3); HEMATOCRIT 25.2 % (38.0-50.0); HEMOGLOBIN 8.3 G/DL (12.5-16.6); IMMATURE GRANULOCYTE (%) 0.3 % (0.0-0.7); LYMPHOCYTE COUNT 1.2 K/uL (1.0-2.8); MCH 30.2 PG (29.0-34.0); MCHC 32.9 G/DL (30.0-36.0); MCV 91.6 FL (86-99); MONOCYTE (%) 8.9 % (3-12); MONOCYTE COUNT 0.6 K/uL (0-0.8); NEUTROPHIL (%) 66.4 % (45-76); NEUTROPHIL COUNT 4.8 K/uL (1.8-6.4); PLATELET COUNT 140 K/uL (156-360); RBC DIS.WIDTH-CV 15.1 % (11.8-14.6); RBC DIS.WIDTH-SD 50.6 % (39-53); RED BLOOD COUNT 2.75 M/uL (4.00-5.50); WHITE BLOOD COUNT 7.2 K/uL (4.1-10.2)
[2017-07-25] VITALS (7 sets, daily range): BP systolic 147–168; BP diastolic 72–81
[2017-07-25 03:03] LABS: BASOPHIL (%) 0.5 % (0-1); EOSINOPHIL (%) 7.5 % (0-5); EOSINOPHIL COUNT 0.5 K/uL (0-0.3); HEMATOCRIT 26.6 % (38.0-50.0); HEMOGLOBIN 8.9 G/DL (12.5-16.6); IMMATURE GRANULOCYTE (%) 0.3 % (0.0-0.7); LYMPHOCYTE (%) 12.7 % (15-42); LYMPHOCYTE COUNT 0.8 K/uL (1.0-2.8); MCH 30.6 PG (29.0-34.0); MCHC 33.5 G/DL (30.0-36.0); MCV 91.4 FL (86-99); MONOCYTE (%) 8.1 % (3-12); MONOCYTE COUNT 0.5 K/uL (0-0.8); NEUTROPHIL (%) 70.9 % (45-76); NEUTROPHIL COUNT 4.6 K/uL (1.8-6.4); PLATELET COUNT 162 K/uL (156-360); RBC DIS.WIDTH-CV 14.9 % (11.8-14.6); RBC DIS.WIDTH-SD 50.2 % (39-53); RED BLOOD COUNT 2.91 M/uL (4.00-5.50); WHITE BLOOD COUNT 6.5 K/uL (4.1-10.2)
[2017-07-25 08:15] LABS: BASOPHIL (%) 0.7 % (0-1); EOSINOPHIL (%) 7.5 % (0-5); EOSINOPHIL COUNT 0.4 K/uL (0-0.3); HEMATOCRIT 26.9 % (38.0-50.0); HEMOGLOBIN 8.8 G/DL (12.5-16.6); IMMATURE GRANULOCYTE (%) 0.4 % (0.0-0.7); LYMPHOCYTE (%) 16.1 % (15-42); LYMPHOCYTE COUNT 0.9 K/uL (1.0-2.8); MCH 29.9 PG (29.0-34.0); MCHC 32.7 G/DL (30.0-36.0); MCV 91.5 FL (86-99); MONOCYTE (%) 7.9 % (3-12); MONOCYTE COUNT 0.5 K/uL (0-0.8); NEUTROPHIL (%) 67.4 % (45-76); NEUTROPHIL COUNT 3.9 K/uL (1.8-6.4); PLATELET COUNT 154 K/uL (156-360); RBC DIS.WIDTH-CV 14.8 % (11.8-14.6); RBC DIS.WIDTH-SD 49.3 % (39-53); RED BLOOD COUNT 2.94 M/uL (4.00-5.50); WHITE BLOOD COUNT 5.7 K/uL (4.1-10.2)
[2017-07-25 12:10] LABS: GLUCOSE 503 mg/dL (70-99)
[2017-07-25 14:14] LABS: BASOPHIL (%) 0.8 % (0-1); BASOPHIL COUNT 0.1 K/uL (0-0.1); EOSINOPHIL (%) 4.5 % (0-5); EOSINOPHIL COUNT 0.3 K/uL (0-0.3); HEMATOCRIT 26.1 % (38.0-50.0); HEMOGLOBIN 8.5 G/DL (12.5-16.6); IMMATURE GRANULOCYTE (%) 0.3 % (0.0-0.7); LYMPHOCYTE (%) 13.7 % (15-42); LYMPHOCYTE COUNT 0.9 K/uL (1.0-2.8); MCH 29.7 PG (29.0-34.0); MCHC 32.6 G/DL (30.0-36.0); MCV 91.3 FL (86-99); MONOCYTE (%) 7.7 % (3-12); MONOCYTE COUNT 0.5 K/uL (0-0.8); NEUTROPHIL COUNT 4.8 K/uL (1.8-6.4); PLATELET COUNT 158 K/uL (156-360); RBC DIS.WIDTH-CV 14.5 % (11.8-14.6); RED BLOOD COUNT 2.86 M/uL (4.00-5.50); WHITE BLOOD COUNT 6.6 K/uL (4.1-10.2)
[2017-07-25 20:04] LABS: BASOPHIL (%) 0.4 % (0-1); EOSINOPHIL (%) 6.1 % (0-5); EOSINOPHIL COUNT 0.4 K/uL (0-0.3); HEMATOCRIT 26.3 % (38.0-50.0); HEMOGLOBIN 8.9 G/DL (12.5-16.6); IMMATURE GRANULOCYTE (%) 0.3 % (0.0-0.7); LYMPHOCYTE (%) 19.9 % (15-42); LYMPHOCYTE COUNT 1.3 K/uL (1.0-2.8); MCH 31.2 PG (29.0-34.0); MCHC 33.8 G/DL (30.0-36.0); MCV 92.3 FL (86-99); MONOCYTE (%) 9.4 % (3-12); MONOCYTE COUNT 0.6 K/uL (0-0.8); NEUTROPHIL (%) 63.9 % (45-76); NEUTROPHIL COUNT 4.3 K/uL (1.8-6.4); PLATELET COUNT 158 K/uL (156-360); RBC DIS.WIDTH-CV 14.4 % (11.8-14.6); RBC DIS.WIDTH-SD 48.2 % (39-53); RED BLOOD COUNT 2.85 M/uL (4.00-5.50); WHITE BLOOD COUNT 6.7 K/uL (4.1-10.2)
[2017-07-26 01:02] LABS: BASOPHIL (%) 0.4 % (0-1); EOSINOPHIL (%) 5.6 % (0-5); EOSINOPHIL COUNT 0.4 K/uL (0-0.3); HEMATOCRIT 26.8 % (38.0-50.0); HEMOGLOBIN 9.2 G/DL (12.5-16.6); IMMATURE GRANULOCYTE (%) 0.3 % (0.0-0.7); LYMPHOCYTE (%) 16.5 % (15-42); LYMPHOCYTE COUNT 1.2 K/uL (1.0-2.8); MCH 31.2 PG (29.0-34.0); MCHC 34.3 G/DL (30.0-36.0); MCV 90.8 FL (86-99); MONOCYTE (%) 7.9 % (3-12); MONOCYTE COUNT 0.6 K/uL (0-0.8); NEUTROPHIL (%) 69.3 % (45-76); NEUTROPHIL COUNT 5.1 K/uL (1.8-6.4); PLATELET COUNT 168 K/uL (156-360); RBC DIS.WIDTH-CV 14.2 % (11.8-14.6); RBC DIS.WIDTH-SD 46.5 % (39-53); RED BLOOD COUNT 2.95 M/uL (4.00-5.50); WHITE BLOOD COUNT 7.3 K/uL (4.1-10.2)
[2017-07-26 08:47] LABS: BASOPHIL (%) 0.7 % (0-1); EOSINOPHIL (%) 4.8 % (0-5); EOSINOPHIL COUNT 0.3 K/uL (0-0.3); HEMATOCRIT 26.1 % (38.0-50.0); HEMOGLOBIN 8.9 G/DL (12.5-16.6); IMMATURE GRANULOCYTE (%) 0.3 % (0.0-0.7); LYMPHOCYTE (%) 12.8 % (15-42); LYMPHOCYTE COUNT 0.8 K/uL (1.0-2.8); MCH 31.2 PG (29.0-34.0); MCHC 34.1 G/DL (30.0-36.0); MCV 91.6 FL (86-99); MONOCYTE (%) 6.1 % (3-12); MONOCYTE COUNT 0.4 K/uL (0-0.8); NEUTROPHIL (%) 75.3 % (45-76); NEUTROPHIL COUNT 4.4 K/uL (1.8-6.4); PLATELET COUNT 177 K/uL (156-360); RBC DIS.WIDTH-CV 14.2 % (11.8-14.6); RBC DIS.WIDTH-SD 47.1 % (39-53); RED BLOOD COUNT 2.85 M/uL (4.00-5.50); WHITE BLOOD COUNT 5.9 K/uL (4.1-10.2)
[2017-07-26 09:41] VITALS: BP 133/72
[2017-07-26 14:16] LABS: BASOPHIL (%) 0.7 % (0-1); EOSINOPHIL (%) 4.4 % (0-5); EOSINOPHIL COUNT 0.2 K/uL (0-0.3); HEMATOCRIT 26.2 % (38.0-50.0); HEMOGLOBIN 8.9 G/DL (12.5-16.6); IMMATURE GRANULOCYTE (%) 0.2 % (0.0-0.7); LYMPHOCYTE (%) 16.2 % (15-42); LYMPHOCYTE COUNT 0.9 K/uL (1.0-2.8); MCH 31.2 PG (29.0-34.0); MCV 91.9 FL (86-99); MONOCYTE (%) 7.3 % (3-12); MONOCYTE COUNT 0.4 K/uL (0-0.8); NEUTROPHIL (%) 71.2 % (45-76); NEUTROPHIL COUNT 3.9 K/uL (1.8-6.4); PLATELET COUNT 176 K/uL (156-360); RBC DIS.WIDTH-CV 14.2 % (11.8-14.6); RBC DIS.WIDTH-SD 47.2 % (39-53); RED BLOOD COUNT 2.85 M/uL (4.00-5.50); WHITE BLOOD COUNT 5.5 K/uL (4.1-10.2)
[2017-07-26 16:48] VITALS: BP 144/71
[2017-07-26 19:35] VITALS: BP 157/74
[2017-07-26 19:47] LABS: BASOPHIL (%) 0.6 % (0-1); EOSINOPHIL (%) 5.2 % (0-5); EOSINOPHIL COUNT 0.3 K/uL (0-0.3); HEMATOCRIT 26.5 % (38.0-50.0); IMMATURE GRANULOCYTE (%) 0.2 % (0.0-0.7); LYMPHOCYTE (%) 18.3 % (15-42); LYMPHOCYTE COUNT 1.2 K/uL (1.0-2.8); MCH 31.4 PG (29.0-34.0); MCV 92.3 FL (86-99); MONOCYTE (%) 7.3 % (3-12); MONOCYTE COUNT 0.5 K/uL (0-0.8); NEUTROPHIL (%) 68.4 % (45-76); NEUTROPHIL COUNT 4.5 K/uL (1.8-6.4); PLATELET COUNT 182 K/uL (156-360); RBC DIS.WIDTH-CV 14.2 % (11.8-14.6); RED BLOOD COUNT 2.87 M/uL (4.00-5.50); WHITE BLOOD COUNT 6.6 K/uL (4.1-10.2)
[2017-07-27 00:05] VITALS: BP 140/64
[2017-07-27 05:30] VITALS: BP 136/72
[2017-07-27 06:12] LABS: CHLORIDE 110 MEQ/L (99-109); CREATININE 0.9 MG/DL (0.6-1.3); GFR ESTIMATE (CALCULATED) > 59 mL/min/ (58.99-99999); GLUCOSE 176 mg/dL (70-99); POTASSIUM 4.2 MEQ/L (3.7-5.4); SODIUM 145 MEQ/L (136-147); UREA NITROGEN (BUN) 9 mg/dL (9-23)
[2017-07-27 08:13] VITALS: BP 149/70
[2017-07-27 15:56] VITALS: BP 156/72
[2017-07-27 20:05] VITALS: BP 155/89
[2017-07-28] VITALS (8 sets, daily range): BP systolic 134–170; BP diastolic 65–82
[2017-07-28 20:18] LABS: HEMATOCRIT 26.4 % (38.0-50.0); HEMOGLOBIN 8.7 G/DL (12.5-16.6); MCH 30.6 PG (29.0-34.0); PLATELET COUNT 214 K/uL (156-360); RBC DIS.WIDTH-CV 13.8 % (11.8-14.6); RBC DIS.WIDTH-SD 46.5 % (39-53); RED BLOOD COUNT 2.84 M/uL (4.00-5.50); WHITE BLOOD COUNT 6.8 K/uL (4.1-10.2)
[2017-07-29 00:17] VITALS: BP 160/82
[2017-07-29 02:51] VITALS: BP 151/75
[2017-07-29 05:50] LABS: BASOPHIL (%) 0.5 % (0-1); EOSINOPHIL (%) 3.2 % (0-5); EOSINOPHIL COUNT 0.2 K/uL (0-0.3); HEMATOCRIT 26.1 % (38.0-50.0); HEMOGLOBIN 8.5 G/DL (12.5-16.6); IMMATURE GRANULOCYTE (%) 0.2 % (0.0-0.7); LYMPHOCYTE (%) 14.1 % (15-42); LYMPHOCYTE COUNT 0.8 K/uL (1.0-2.8); MCHC 32.6 G/DL (30.0-36.0); MCV 92.2 FL (86-99); MONOCYTE COUNT 0.5 K/uL (0-0.8); NEUTROPHIL COUNT 4.3 K/uL (1.8-6.4); PLATELET COUNT 215 K/uL (156-360); RBC DIS.WIDTH-CV 13.9 % (11.8-14.6); RBC DIS.WIDTH-SD 46.4 % (39-53); RED BLOOD COUNT 2.83 M/uL (4.00-5.50); WHITE BLOOD COUNT 5.9 K/uL (4.1-10.2)
[2017-07-29 06:19] LABS: IRON 16 MCG/DL (35-150); TRANSFERRIN (TIBC) 200.2 mg/dL (215-380); TRANSFERRIN SATUR. 8 % (20-55)
[2017-07-29 06:20] LABS: CHLORIDE 109 MEQ/L (99-109); CREATININE 0.8 MG/DL (0.6-1.3); GFR ESTIMATE (CALCULATED) > 59 mL/min/ (58.99-99999); GLUCOSE 248 mg/dL (70-99); POTASSIUM 3.8 MEQ/L (3.7-5.4); SODIUM 141 MEQ/L (136-147); UREA NITROGEN (BUN) 5 mg/dL (9-23)
[2017-07-29 06:55] LABS: FERRITIN 29 NG/ML (22-322)
[2017-07-29 07:43] VITALS: BP 170/72
[2017-07-29 14:15] VITALS: BP 152/82
[2017-07-29 15:23] VITALS: BP 140/78
[2017-07-29 20:10] VITALS: BP 129/63
[2017-07-30] VITALS (8 sets, daily range): BP systolic 113–187; BP diastolic 56–80
[2017-07-31 08:16] VITALS: BP 149/68
[2017-07-31 16:43] VITALS: BP 183/84
[2017-07-31 20:59] VITALS: BP 130/60
[2017-07-31 23:49] VITALS: BP 131/56
[2017-08-01 05:44] VITALS: BP 151/70
[2017-08-01 06:08] LABS: BASOPHIL (%) 0.5 % (0-1); EOSINOPHIL (%) 2.5 % (0-5); EOSINOPHIL COUNT 0.2 K/uL (0-0.3); HEMATOCRIT 24.6 % (38.0-50.0); IMMATURE GRANULOCYTE (%) 0.3 % (0.0-0.7); LYMPHOCYTE (%) 10.7 % (15-42); LYMPHOCYTE COUNT 0.7 K/uL (1.0-2.8); MCH 30.1 PG (29.0-34.0); MCHC 32.5 G/DL (30.0-36.0); MCV 92.5 FL (86-99); MONOCYTE (%) 9.8 % (3-12); MONOCYTE COUNT 0.6 K/uL (0-0.8); NEUTROPHIL (%) 76.2 % (45-76); NEUTROPHIL COUNT 4.7 K/uL (1.8-6.4); PLATELET COUNT 205 K/uL (156-360); RBC DIS.WIDTH-CV 13.7 % (11.8-14.6); RBC DIS.WIDTH-SD 46.6 % (39-53); RED BLOOD COUNT 2.66 M/uL (4.00-5.50); WHITE BLOOD COUNT 6.1 K/uL (4.1-10.2)
[2017-08-01 06:43] LABS: CHLORIDE 108 MEQ/L (99-109); GFR ESTIMATE (CALCULATED) > 59 mL/min/ (58.99-99999); GLUCOSE 267 mg/dL (70-99); POTASSIUM 4.2 MEQ/L (3.7-5.4); SODIUM 140 MEQ/L (136-147); UREA NITROGEN (BUN) 8 mg/dL (9-23)
[2017-08-01 07:20] VITALS: BP 153/72
[2017-08-01 11:10] VITALS: BP 162/79
[2017-08-01 15:47] VITALS: BP 147/63
[2017-08-01 19:17] VITALS: BP 130/66
[2017-08-01 23:42] VITALS: BP 117/58
[2017-08-02 03:29] VITALS: BP 117/58
[2017-08-02 08:46] VITALS: BP 139/70
[2017-08-02 11:56] VITALS: BP 140/70
[2017-08-02 15:19] LABS: STOOL OCCULT BLD 1ST SPECIMEN NEGATIVE
[2017-08-02] MEDS ORDERED: LEVEMIR100 UNIT/2 SC ×2 (16:11→16:14)
[2017-08-02] MEDS ORDERED: PERCOCET 5/31 TABLET PO (16:14)
[2017-08-02] MEDS ORDERED: FERGON324 MG PO (16:14)
[2017-08-02 16:25] VITALS: BP 139/65
== END 2017-08-02 18:21 | DRG 982 ==
LOC: EME 08:34 → EDOF 12:15 → 3EAST 12:15 → 4EAST 12:15 → ENRESERV 13:08 → 4EAST 14:42 → ENRESERV 07-25 15:10 → 3EAST 07-25 17:07
PROVIDERS: Emergency Medicine; Internal Medicine; Specialist
DX: K92.1 Melena (principal); D62 Acute posthemorrhagic anemia; I95.9 Hypotension, unspecified; S82.851A Displaced trimalleolar fracture of right lower leg, initial encounter for closed fracture; W19.XXXA Unspecified fall, initial encounter; Y92.009 Unspecified place in unspecified non-institutional (private) residence as the place of occurrence of the external cause; K29.70 Gastritis, unspecified, without bleeding; K64.8 Other hemorrhoids; K57.30 Diverticulosis of large intestine without perforation or abscess without bleeding; K63.5 Polyp of colon; J45.909 Unspecified asthma, uncomplicated; E03.9 Hypothyroidism, unspecified; I12.9 Hypertensive chronic kidney disease with stage 1 through stage 4 chronic kidney disease, or unspecified chronic kidney disease; E11.22 Type 2 diabetes mellitus with diabetic chronic kidney disease; N18.9 Chronic kidney disease, unspecified; K21.9 Gastro-esophageal reflux disease without esophagitis; I25.10 Atherosclerotic heart disease of native coronary artery without angina pectoris; F31.9 Bipolar disorder, unspecified; E04.2 Nontoxic multinodular goiter; E78.5 Hyperlipidemia, unspecified; F20.9 Schizophrenia, unspecified; F70 Mild intellectual disabilities; M47.812 Spondylosis without myelopathy or radiculopathy, cervical region; N40.0 Benign prostatic hyperplasia without lower urinary tract symptoms; Z66 Do not resuscitate; Z79.4 Long term (current) use of insulin; Z87.891 Personal history of nicotine dependence; Z86.73 Personal history of transient ischemic attack (TIA), and cerebral infarction without residual deficits; Z79.82 Long term (current) use of aspirin; Z79.02 Long term (current) use of antithrombotics/antiplatelets; Z95.5 Presence of coronary angioplasty implant and graft
CPT/HCPCS: 70450; 71260; 72125; 73600; 73610; 74177; 74250; 76000; 80048; 80053; 81003; 82010; 82272; 82728; 82803; 82948; 83540; 83605; 84466; 84484; 84999; 85014; 85018; 85025; 85025 91; 85027; 85610; 85730; 86850; 86900; 86901; 86920; 88305; 88312; 88342 TC; 93005; 93880; 99281; 99285; A6214; C1713; C1769; C9113; J0131; J0690; J1170; J1815; J2250; J2270; J2405; J3010; J7030; J7042; J7070; J7120; P9016; S0020

== ENCOUNTER 2017-09-15 23:58 | Emergency (ER) | payer OTHER ==
[~2017-09-15] VITALS: Ht 172.7 cm; Wt 81.0 kg
[~2017-09-15 23:58] MED LIST changes: +FERGON324 MG PO; +FOLIC ACID1 MG PO; +LOSARTAN POTASS25 MG PO; +MAG-OXIDE400 MG PO; +PERCOCET 5/31 TABLET PO; +THIAMINE HCL100 MG PO
[2017-09-16 01:07] LABS: BASOPHIL (%) 0.8 % (0-1); BASOPHIL COUNT 0.1 K/uL (0-0.1); EOSINOPHIL (%) 2.4 % (0-5); EOSINOPHIL COUNT 0.2 K/uL (0-0.3); HEMATOCRIT 29.1 % (38.0-50.0); IMMATURE GRANULOCYTE (%) 0.4 % (0.0-0.7); LYMPHOCYTE (%) 20.2 % (15-42); LYMPHOCYTE COUNT 1.6 K/uL (1.0-2.8); MCH 30.6 PG (29.0-34.0); MCHC 34.4 G/DL (30.0-36.0); MONOCYTE (%) 9.3 % (3-12); MONOCYTE COUNT 0.7 K/uL (0-0.8); NEUTROPHIL (%) 66.9 % (45-76); NEUTROPHIL COUNT 5.3 K/uL (1.8-6.4); PLATELET COUNT 239 K/uL (156-360); RBC DIS.WIDTH-CV 13.2 % (11.8-14.6); RBC DIS.WIDTH-SD 43.1 % (39-53); RED BLOOD COUNT 3.27 M/uL (4.00-5.50); WHITE BLOOD COUNT 7.9 K/uL (4.1-10.2)
[2017-09-16 01:15] LABS: ALBUMIN 3.5 g/dL (3.2-4.8); CHLORIDE 102 mEq/L (99-109); POTASSIUM 4.8 mEq/L (3.7-5.4); SODIUM 131 mEq/L (136-147)
[2017-09-16 01:18] LABS: TOTAL PROTEIN 6.5 g/dL (6.4-8.3)
[2017-09-16 01:20] LABS: TOTAL BILIRUBIN 0.2 mg/dL (0.0-1.0)
[2017-09-16 01:21] LABS: ALKALINE PHOSPHATASE 154 IU/L (3-129); GFR ESTIMATE (CALCULATED) 46 mL/min/ (58.99-99999)
[2017-09-16 01:23] LABS: AST (GOT) 19 IU/L (2-34)
[2017-09-16 01:24] LABS: ALT (GPT) 30 IU/L (3-49)
[2017-09-16 01:25] LABS: CREATININE 1.6 mg/dL (0.6-1.3); GLUCOSE 524 mg/dL (70-99); UREA NITROGEN (BUN) 29 mg/dL (9-23)
[2017-09-16 01:28] LABS: TROP-I INTERPRETATION NEGATIVE; TROPONIN-I 0.02 ng/mL (0.0-0.30)
[2017-09-16 01:33] LABS: APPEARANCE CLEAR ((CLEAR)); BILIRUBIN NEGATIVE; BLOOD NEGATIVE; COLOR STRAW ((YELLOW)); GLUCOSE (STRIP) >=500; KETONES NEGATIVE; LEUKOCYTES SMALL; NITRITE NEGATIVE; PROTEIN (STRIP) NEGATIVE; SPECIFIC GRAVITY 1.006 (1.000-1.030); UROBILINOGEN 0.2 MG/DL (0.2-1.0)
[2017-09-16 01:38] LABS: BACTERIA RARE /HPF; EPITHELIAL CELLS RARE /HPF; MUCUS TRACE /LPF; RED BLOOD CELLS 0-5 /HPF (0-5); UCUL ADDED? NO; WHITE BLOOD CELLS 0-5 /HPF (0-5)
[2017-09-16 05:05] VITALS: BP 122/59
== END 2017-09-16 05:15 ==
LOC: EME 23:58
PROVIDERS: Emergency Medicine
DX: E11.65 Type 2 diabetes mellitus with hyperglycemia (principal); I45.2 Bifascicular block; R91.8 Other nonspecific abnormal finding of lung field; E11.10 Type 2 diabetes mellitus with ketoacidosis without coma; I10 Essential (primary) hypertension; E78.5 Hyperlipidemia, unspecified; N19 Unspecified kidney failure; K21.9 Gastro-esophageal reflux disease without esophagitis; J45.909 Unspecified asthma, uncomplicated; N40.0 Benign prostatic hyperplasia without lower urinary tract symptoms; F32.9 Major depressive disorder, single episode, unspecified; F31.9 Bipolar disorder, unspecified; F20.9 Schizophrenia, unspecified; R62.50 Unspecified lack of expected normal physiological development in childhood; Z79.02 Long term (current) use of antithrombotics/antiplatelets; Z79.4 Long term (current) use of insulin; Z87.891 Personal history of nicotine dependence; Z86.73 Personal history of transient ischemic attack (TIA), and cerebral infarction without residual deficits; Z90.49 Acquired absence of other specified parts of digestive tract; Z85.9 Personal history of malignant neoplasm, unspecified; Z88.8 Allergy status to other drugs, medicaments and biological substances
CPT/HCPCS: 71045; 80053; 81003; 82010; 82948; 83735; 84484; 85025; 93005; 99281; 99285; J7040; J7120